=== PATIENT | male | born 1945 | race Caucasian/White ===

== ENCOUNTER → 2016-10-17 | Outpatient (CLI) | payer BC, MEDICARE ==
[~2016-10-17] MED LIST: COCO120O MC; GLUC1TAB44 PO; LUTE20CA2 PO; OMEG1CAP6 PO; OMEP40CA5 PO; TUMERIC CURCUMIN PO
--- NOTE | 2016-10-17 15:28 | CARD ---
APPROVED REPORT INDICATION Chest Pain PROCEDURE The patient underwent an Exercise Stress Test using the Brett Protocol. Blood pressure, heart rate, a nd EKG were monitored. An Echocardiogram was performed by heat transfer technician in four stages in quad fashion. At peak stress four se lected images were obtained and placed side by side with resting images for comparison. STRESS ECHO FINDINGS The resting Echocardiogram showed normal left ventricular contractility with an estimated Ejection Fr action of about 60 %. The stress Echocardiogram showed wall motion abnormality in the anterior,inferior, lateral and inferi orseptal dyer. Test Type: Exercise Stress Nurse/Tech: Anabela Puckett R.N. Test Indications: chest pain, describes cramping pain Cardiac History and Allergies: none Medications: none Resting ECG: sr Resting Heart Rate: 64 bpm Resting Blood Pressure: 136/79mmHg Pretest Chest Pain: No chest pain Nurse/Tech Notes lungs cta, heart tones regular Consent: The procedure was explained to the patient in lay terms. Informed consent was witnessed. Marvin eout was entered into [employer]. History and Stress Test performed by Anabela Puckett R.N. Stress Symptoms DyspneaNo chest pain or symptoms. POST EXERCISE Reason for Termination: Reached target heart rate Target HR: Yes Max HR: 128 bpm 87% of Maximum Predicted HR: 147 bpm Exercise duration: 4:49 min:sec, 2 Stage Exercise capacity: 7.0METs Max Blood Pressure: 149/70mmHg Blood Pressure response to exercise: Normal blood pressure response during stress. Chest Pain: No. Arrhythmia: Yes. pvcs at end of exercise portion INTERPRETATION Stress EKG Conclusion: The resting EKG showed a sinus rhythm with minimal nonspecific ST-T wave farley es. The stress EKG showed significant ST depression in the inferior and lateral leads. EKG changes with exertion that are consistent with exercise-induced ischemia. <Conclusion> Good exercise tolerance with the patient walking for 4 minutes and 49 seconds on a Brett protocol. No chest pain reported with exertion. EKG changes with exertion that are consistent with ischemia. Normal left ventricular systolic function at rest. Abnormal LV function response to exertion with wall motion abnormalities in the inferior and lateral dyer. Abnormal treadmill stress echocardiogram with both EKG changes and LV wall motion abnormalities consi stent with stress induced ischemia.
== END | disposition home or self-care (01) ==
LOC: ECHO 12:32
PROVIDERS: ATTEND Internal Medicine Cardiovascular Disease
DX: R07.89 Other chest pain (principal)
CPT/HCPCS: 93017; 93350

== ENCOUNTER 2016-10-18 14:04 | Inpatient (IN) | payer MEDICARE, BC ==
[~2016-10-18] VITALS: Ht 182.9 cm; Wt 86.8 kg
[2016-10-18] MEDS ORDERED: NITROGLYCERIN SUBLINGUAL 0.4 MG BOTTLE OF 25. SL PRN ×3 (14:30→17:45)
[2016-10-18] MEDS ORDERED: FENTANYL PF 100 MCG/2 ML VIAL. IV PRN (14:30)
[2016-10-18 14:42] LABS: BASO # 0.1 x10^3/uL (0.0-0.2); BASO % 1 % (0-3); EOS % 2 % (0-3); LYMPH # 2.2 x10^3/uL (1.0-4.8); LYMPH % 20 % (24-48); MEAN CORPUSCULAR HEMOGLOBIN 31 pg (25-35); MEAN CORPUSCULAR HGB CONC 34 g/dL (31-37); MEAN CORPUSCULAR VOLUME 90 fL (79-100); MONO % 7 % (0-9); NEUT % 71 % (31-73); PLATELET COUNT 365 x10^3/uL (140-400); RED CELL DISTRIBUTION WIDTH 13.5 % (11.5-14.5); WHITE BLOOD COUNT 11.1 x10^3/uL (4.0-11.0)
[2016-10-18 14:51] LABS: INR 1.1 (0.8-1.1); PROTHROMBIN TIME PATIENT 13.2 SEC (11.7-14.0)
[2016-10-18 14:54] LABS: CALCIUM 8.9 mg/dL (8.5-10.1); CREATININE 0.9 mg/dL (0.7-1.3); GFR 82.7; MAGNESIUM 1.8 mg/dL (1.8-2.4); POTASSIUM 4.3 mmol/L (3.5-5.1)
--- NOTE | 2016-10-18 15:07 | RAD ---
Examination: Frontal view of the of chest History: History of chest pain Comparison: None available Findings: The cardiomediastinal silhouette grossly appears unremarkable. There is no acute infiltrate or visualized pneumothorax identified. Impression: No acute cardiopulmonary findings.
--- NOTE | 2016-10-18 15:19 | EKG ---
[facility] [address] [place] [address] Test Date: 2016-10-18 Test Time: 14:13:05 Pat Name: JG ALONSO Department: Room: Gender: M Fine Arts Teacher: : 1945 Requested By: Corona RICE Order Number: [id number] Reading MD: Sunil Nix Measurements Intervals [place] Rate: 67 P: 39 DE: 166 QRS: 34 QRSD: 110 T: 91 QT: 438 QTc: 466 Interpretive Statements SINUS RHYTHM LEFT ATRIAL ABNORMALITY LVH WITH REPOLARIZATION ABNORMALITY RVH WITH REPOLARIZATION ABNORMALITY QRS(T) CONTOUR ABNORMALITY CONSIDER ANTEROSEPTAL MYOCARDIAL DAMAGE RI6.01 Unconfirmed report No previous ECG available for comparison Electronically Signed On 10-20-2016 14:04:56 GIS SCIENTIST by Sunil Nix
[2016-10-18] MEDS ORDERED: ONDANSETRON PF 4 MG/2 ML VIAL. IV PRN ×2 (16:15→17:32)
[2016-10-18] MEDS ORDERED: ENOXAPARIN ** NOTE DOSE ** SYRINGE SQ ONE (16:15)
[2016-10-18] MEDS ORDERED: ASPIRIN 325 MG TABLET PO ONE (16:15)
[2016-10-18] MEDS ORDERED: ACETAMINOPHEN 325 MG TABLET. PO PRN (16:15)
[2016-10-18] MEDS ORDERED: MORPHINE SULFATE 4 MG/ML DISP.SYRIN. IV PRN ×2 (16:15→17:45)
--- NOTE | 2016-10-18 16:16 | PHYS DOC ---
Past Medical History Past Medical History: Other Additional Past Medical Histor: chronic back pain Past Surgical History: Other Additional Past Surgical Histo: hernia surgery Alcohol Use: None Drug Use: None Adult General Chief Complaint Chief Complaint: CHEST PAIN HPI HPI Patient is a 71 year old male who presents for intermittent chest pains at rest that have occurred in mid chest and last minutes at a time. Most recent episode at 1100 today. States these episodes are occurring more frequently recently. He states he had a stress test on Thursday and had abnormal results. He called Dr. Panda, on-call professor of psychiatry, who recommended coming to the emergency department for further evaluation. He is currently without symptoms. He denies cough, dyspnea, fever or chills, nausea or vomiting, abdominal pain, leg pain or swelling, orthopnea. Review of Systems Review of Systems Constitutional: Denies fever or chills [] Eyes: Denies change in visual acuity, redness, or eye pain [] HENT: Denies nasal congestion or sore throat [] Respiratory: Denies cough or shortness of breath [] Cardiovascular: No additional information not addressed in HPI [] GI: Denies abdominal pain, nausea, vomiting, bloody stools or diarrhea [] : Denies dysuria or hematuria [] Musculoskeletal: Denies back pain or joint pain [] Integument: Denies rash or skin lesions [] Neurologic: Denies headache, focal weakness or sensory changes [] Endocrine: Denies polyuria or polydipsia [] Current Medications Current Medications Current Medications Medications (Trade) Dose Ordered Sig/[facility] Start Time Stop Time Status Last Admin Dose Admin Fentanyl Citrate (Fentanyl 2ml Vial) 50 mcg PRN Q15MIN PRN 10/18/16 14:30 10/18/16 17:33 DC Nitroglycerin (Nitrostat) 0.4 mg PRN Q5MIN PRN 10/18/16 14:30 10/18/16 17:47 DC Allergies Allergies Allergies Coded Allergies Type Severity Reaction Last Updated Verified No Known Drug Allergies 10/18/16 No Physical Exam Physical Exam Constitutional: Well developed, well nourished, no acute distress, non-toxic appearance. [] HENT: Normocephalic, atraumatic, bilateral external ears normal, oropharynx moist, no oral exudates, nose normal. [] Eyes: PERRLA, EOMI. [] Neck: Normal range of motion, supple. [] Cardiovascular:Heart rate regular rhythm [] Lungs & Thorax: Bilateral breath sounds clear to auscultation. No chest wall tenderness [] Abdomen: Bowel sounds normal, soft, no tenderness, no pulsatile masses. [] Skin: Warm, dry, no erythema, no rash. [] Back: Normal range of motion. [] Extremities: No tenderness, ROM intact, no edema. [] Neurologic: Alert and oriented X 3, normal motor function, normal sensory function, no focal deficits noted. [] Psychologic: Affect normal, judgement normal, mood normal. [] Current Patient Data Vital Signs Vital Signs Date Time Temp Pulse Resp B/P Pulse Ox O2 Delivery O2 Flow Rate FiO2 10/18/16 15:30 66 17 141/73 95 Room Air 10/18/16 14:13 98.2 98.2 Lab Values Laboratory Tests Test 10/18/16 14:26 White Blood Count 11.1x10^3/uL (4.0-11.0) H Red Blood Count 4.90x10^6/uL (4.30-5.70) Hemoglobin 15.0g/dL (13.0-17.5) Hematocrit 44.0% (39.0-53.0) Mean Corpuscular Volume 90fL (79-100) Mean Corpuscular Hemoglobin 31pg (25-35) Mean Corpuscular Hemoglobin Concent 34g/dL (31-37) Red Cell Distribution Width 13.5% (11.5-14.5) Platelet Count 365x10^3/uL (140-400) Neutrophils (%) (Auto) 71% (31-73) Lymphocytes (%) (Auto) 20% (24-48) L Monocytes (%) (Auto) 7% (0-9) Eosinophils (%) (Auto) 2% (0-3) Basophils (%) (Auto) 1% (0-3) Neutrophils # (Auto) 7.9x10^3uL (1.8-7.7) H Lymphocytes # (Auto) 2.2x10^3/uL (1.0-4.8) Monocytes # (Auto) 0.7x10^3/uL (0.0-1.1) Eosinophils # (Auto) 0.2x10^3/uL (0.0-0.7) Basophils # (Auto) 0.1x10^3/uL (0.0-0.2) Prothrombin Time 13.2SEC (11.7-14.0) Prothrombin Time INR 1.1 (0.8-1.1) Sodium Level 142mmol/L (136-145) Potassium Level 4.3mmol/L (3.5-5.1) Chloride Level 107mmol/L (98-107) Carbon Dioxide Level 26mmol/L (21-32) Anion Gap 9 (6-14) Blood Urea Nitrogen 11mg/dL (8-26) Creatinine 0.9mg/dL (0.7-1.3) Estimated GFR (Cockcroft-Gault) 82.7 Glucose Level 131mg/dL (70-99) H Calcium Level 8.9mg/dL (8.5-10.1) Magnesium Level 1.8mg/dL (1.8-2.4) Troponin I Quantitative 0.133ng/mL (0.000-0.055) XL-Nrj-H-Type Natriuretic Peptide 327pg/mL (0-124) H Laboratory Tests 10/18/16 14:26 Laboratory Tests 10/18/16 14:26 EKG EKG EKG as interpreted by me with normal sinus rhythm, rate 67, T-wave inversions in anterior leads, no ST elevations or depressions, P-R 166, QTC 466, no ectopy Radiology/Procedures Radiology/Procedures Chest xray as interpreted by me with no acute cardiopulmonary disease process Course & Med Decision Making Course & Med Decision Making Pertinent Labs and Imaging studies reviewed. (See chart for details) Laboratory evaluation reveals an elevated troponin; workup is otherwise unremarkable. He remains without symptoms during his stay. ASA and Lovenox ordered. Discussed case with Dr Panda, cardiology, who agrees with plan. Discussed case with Dr. Solis, who will admit. Dragon Disclaimer Dragon Disclaimer This electronic medical record was generated, in whole or in part, using a voice recognition dictation system. Departure Departure Impression: Primary Impression: NSTEMI (non-ST elevated myocardial infarction) Disposition: ADMITTED INPATIENT Condition: STABLE Referrals: MARLENE MONTIEL MD (PCP) Corona RICE MD Oct 18, 2016 16:16
--- NOTE | 2016-10-18 16:41 | ACF ---
Admission Forms Criteria MYOCARDIAL INFARCTION Clinical Indications for Admission to Inpatient Care (Place 'X' for any and all applicable criteria): Admission is indicated for ANY ONE of the following (1)(2)(3)(4): [X]I. Acute OR [ ]II. Contraindications and/or Inappropriate clinical situations for Observational Care in patients with Myocardial Infarction, when ANY ONE of the following is required: [ ]a) Patient with High risk of cardiac embolism (e.g, patients with previous cardiac embolism, LVEF < 40%, age >75 and patients with prosthetic valve) 18 [ ]b) Patient with Moderate risk including DM patient, CAD and patient aged 65-75 18 [ ]c) Patient with any change in cardiac biomarker especially troponin should be managed as high risk in an inpatient setting 19 [ ]d) Physician judgement irrespective of ECG and other diagnostic findings 20 [ ]III.General contraindications and/or Inappropriate clinical situations for Observational Care in patients with Myocardial Infarction, when ANY ONE of the following is required: [ ]a) Prediction of prolongation of LOS based on ANY ONE of the following may be considered as a contraindication for observational care 2, 3, 4, 5, 6, 7, 8, 9, 10, 11 [ ]i) Age > 65 yrs. [ ]ii) Patient arriving by ambulance [ ]iii) Patient with high acuity [ ]iv) Patient requiring vital sign monitoring [ ]v) Patient on IV medication [ ]b) Systolic blood pressures 180mmHg 3,12 [ ]c) Patient with altered mental status including delirium and other alteration of consciousness, (3) [ ]d) Patient whose discharge disposition will be to a usp home or rehabilitation home should not be managed in Emergency Department Observation Unit. CMS rule requires 3 days hospital stay before such placement. 3,13 [ ]e) Patient with failure to thrive due to broad array of etiologies 3 ,16,17 [ ]f) Inability to ambulate 3,14 Extended stay beyond goal length of stay may be needed for (1)(18)(20)(24)(25): [ ]a) Hemodynamic instability, persisting symptoms after intensive medical management, or recurring severe, prolonged symptoms [ ]b) Intravascular procedural complications such as acute vessel closure, stent thrombosis, stent malposition, or vessel dissection (26)(27)(28) [ ]c) Extravascular procedural complications such as retroperitoneal hematoma , pericardial effusion, or cardiac tamponade [ ]d) Entry site complications causing bleeding, hematoma or distal ischemia and requiring ongoing monitoring, surgical repair or surgical thrombectomy(29) [ ]e) Dangerous arrhythmia [ ]f) Complicated percutaneous coronary intervention (e.g., unsuccessful percutaneous coronary intervention or percutaneous coronary intervention of non- [place] vessel) [ ]g) Urgent or emergent surgery for complications of OR (e.g., ventricular rupture, valvular insufficiency) [ ]h) Surgical revascularization via coronary artery bypass graft [ ]i) Heart failure (e.g., pulmonary edema) [ ]j) Unstable pulmonary comorbidities, including COPD or pneumonia (31) [ ]k) Acute renal failure The original [employer] content created by [employer] has been revised. The portions of the content which have been revised are identified through the use of italic text or in bold, and [facility] has neither reviewed nor approved the modified material. All other unmodified content is copyright [facility] Please see references footnoted in the original [facility] edition 2016 Admission Criteria Met?: Yes ARVIND CORBETT Oct 18, 2016 16:41
[2016-10-18] MEDS ORDERED: NEOMY/BACITR/POLYMYXIN OINT PACKET. TP ONE ×2 (16:50→17:15)
--- NOTE | 2016-10-18 17:38 | PDOC1 ---
History and Physical Date of Admission Date of Admission DATE: 10/18/16 TIME: 17:34 Identification/Chief Complaint Chief Complaint chest pains Source Source: Caregiver, Chart review, Patient History of Present Illness History of Present Illness 71 y./o male previously healthy has been having CP, had MPI as OP c/o Dr. Kidd,was abN, Was advised ff up for thursday but has been having bothersome resting CP at home, central, heavy no diaphoresis but some tingling both hands, NOn smoker, non drinker, no personal or fam hx of premature CAD, does not atke any meds at hoem, EKG ok but trop elevated first set, Advised lovenox by cards, admitted under hospitalist. CP 8/10, lasts anywhere between 5 to 20 mins Past Medical History Cardiovascular: No pertinent hx Pulmonary: No pertinent hx GI: No pertinent hx Heme/Onc: No pertinent hx Hepatobiliary: No pertinent hx Psych: No pertinent hx Rheumatologic: No pertinent hx Infectious disease: No pertinent hx ENT: No pertinent hx Renal/: No pertinent hx Endocrine: No pertinent hx Dermatology: No pertinent hx Past Surgical History Past Surgical History: No pertinent history Family History Family History: Heart Disease, High Cholestrol, Hypertension Social History Smoke: No ALCOHOL: none Drugs: None Current Problem List Problem List Problems Medical Problems: (1) Chest pain Status: Acute (2) NSTEMI (non-ST elevated myocardial infarction) Status: Acute Problems: Current Medications Current Medications Current Medications Nitroglycerin (Nitrostat) 0.4 mg PRN Q5MIN PRN SL CP RATING > 1/10; Start at 14:30; Stop 10/19/16 at 14:29 Fentanyl Citrate (Fentanyl 2ml Vial) 50 mcg PRN Q15MIN PRN IV PAIN GREATER THAN 3/10; Start 10/18/16 at 14:30; Stop 10/18/16 at 17:33; Status DC Aspirin (Jessy Aspirin) 325 mg 1X ONCE PO Last administered on 10/18/16 16:47 ; Start 10/18/16 at 16:15; Stop 10/18/16 at 16:32; Status DC Enoxaparin Sodium (Lovenox 100mg Syringe) 90 mg 1X ONCE SQ Last administered on 10/18/16 16:47; Start 10/18/16 at 16:15; Stop 10/18/16 at 16:32; Status DC Ondansetron HCl (Zofran) 4 mg PRN Q8HRS PRN IV NAUSEA/VOMITING; Start 10/18/16 at 16:15; Stop 10/18/16 at 17:33; Status DC Morphine Sulfate 4 mg PRN Q2HR PRN IV PAIN; Start 10/18/16 at 16:15; Stop at 17:33; Status DC Acetaminophen (Tylenol) 650 mg PRN Q4HRS PRN PO FEVER; Start 10/18/16 at 16:15; Stop 10/19/16 at 16:14 Nitroglycerin (Nitrostat) 0.4 mg PRN Q5MIN PRN SL CHEST PAIN; Start 10/18/16 at 16:15; Stop 10/19/16 at 16:14; Status UNV Neomycin/ Polymyxin/ Bacitracin (Triple Antibiotic Ointment) 1 pkt STK-MED ONCE TP ; Start 10/18/16 at 16:50; Stop 10/18/16 at 16:51; Status DC Neomycin/ Polymyxin/ Bacitracin (Triple Antibiotic Ointment) 1 pkt 1X ONCE TP Last administered on 10/18/16t 16:57; Start 10/18/16 at 17:15; Stop 10/18/16 at 17: 16; Status DC Morphine Sulfate 2 mg PRN Q2HR PRN IV PAIN; Start 10/18/16 at 17:45; Status UNV Ondansetron HCl (Zofran) 4 mg PRN Q6HRS PRN IV NAUSEA/VOMITING; Start 10/18/16 at 17:32; Status UNV Nitroglycerin (Nitrostat) 0.4 mg PRN Q5MIN PRN SL CHEST PAIN; Start 10/18/16 at 17:45; Status UNV Diphenhydramine HCl (Benadryl) 25 mg PRN QHS PRN PO INSOMNIA; Start 10/18/16 at 17:45; Status UNV Allergies Allergies: Coded Allergies: No Known Drug Allergies (Unverified , 10/18/16) ROS General: No: Appetite, Chills, Fatigue, Malaise, Night Sweats, Other PSYCHOLOGICAL ROS: No: Anxiety, Behavioral Disorder, Concentration difficultie , Decreased libido, Depression, Disorientation, Hallucinations, Hostility, Irritablity, Memory difficulties, Mood Swings, Obsessive thoughts, Other, Physical abuse, Sexual abuse, Sleep disturbances, Suicidal ideation Eyes: No Blurry vision, No Decreased vision, No Double vision, No Dry eyes, No Excessive tearing, No Eye Pain, No Itchy Eyes, No Loss of vision, No Other, No Photophobia, No Scotomata, No Uses contacts, No Uses glasses HEENT: No: Epistaxis, Heacaches, Hearing change, Nasal congestion, Nasal discharge, Oral lesions, Other, Sinus pain, Sneezing, Snoring, Sore Throat, Tinnitus, Vertigo, Visual Changes, Vocal changes ALLERGY AND IMMUNOLOGY: No: Hives, Insect Bite Sensitivity, Itchy/Watery Eyes, Nasal Congestion, Other, Post Nasal Drip, Seasonal Allergies Hematological and Lymphatic: No: Bleeding Problems, Blood Clots, Blood Transfusions, Brusing, Night Sweats, Other, Pallor, Swollen Lymph Nodes ENDOCRINE: No: Breast Changes, Galactorrhea, Hair Pattern Changes, Hot Flashes , Malaise/lethargy, Mood Swings, Other, Palpitations, Polydipsia/polyuria, Skin Changes, Temperature Intolerance, Unexpected Weight Changes Breast: No New/Changing Breast Lumps, No Nipple changes, No Nipple discharge, No Other Respiratory: No: Cough, Hemoptysis, Orthopnea, Other, Pleuritic Pain, SOB with excertion, Shortness of breath, Sputum Changes, Stridor, Tachypnea, Wheezing Cardiovascular: yes Chest Pain Gastrointestinal: No Abdominal Pain, No Constipation, No Diarrhea, No Hematochezia, No Melena, No Nausea, No Other, No Vomiting Genitourinary: No , No , No , No , No , No , No , No Discharge, No Dysuria, No Flank Pain, No Frequency, No Hematuria, No Incontinence, No Other, No Pain, No Retention, No Urgency Musculoskeletal: No Gait Disturbance, No Joint Pain, No Joint Stiffness, No Joint Swelling, No Muscle Pain, No Muscular Weakness, No Other, No Pain In:, No Swelling In: Neurological: No Behavorial Changes, No Bowel/Bladder ControlChng, No Confusion , No Dizziness, No Gait Disturbance, No Headaches, No Impaired Coord/balance, No Memory Loss, No Numbness/Tingling, No Other, No Seizures, No Speech Problems , No Tremors, No Visual Changes, No Weakness Skin: No Acne, No Dry Skin, No Eczema, No Hair Changes, No Lumps, No Mole Changes, No Mottling, No Nail Changes, No Other, No Pruritus, No Rash, No Skin Lesion Changes Physical Exam General: Alert, Oriented X3, Cooperative, No acute distress HEENT: PERRLA, EOMI Lungs: Clear to auscultation, Normal air movement Heart: S1S2, RRR, no thrills, no rubs, no gallops Cardiovascular: S1, S2 Breasts: Normal Abdomen: Normal bowel sounds, Soft, No tenderness, No hepatosplenomegaly, No masses Male Genitals Exam: normal genitalia, normal prostate Rectal Exam: not examined PELVIC: Nml ext genitalia Extremities: No clubbing, No cyanosis, No edema, Normal pulses, No tenderness/ swelling Skin: No rashes, No breakdown, No significant lesion Neuro: Normal gait, Normal speech, Strength at 5/5 X4 ext, Normal tone, Sensation intact, Cranial nerves 3-12 NL, Reflexes 2+ Psych/Mental Status: Mental status NL, Mood NL Vitals Vitals Vital Signs Date Time Temp Pulse Resp B/P Pulse Ox O2 Delivery O2 Flow Rate FiO2 10/18/16 15:30 66 17 141/73 95 Room Air 10/18/16 14:13 98.2 98.2 Labs Labs Laboratory Tests Test 10/18/16 14:26 White Blood Count 11.1x10^3/uL (4.0-11.0) Red Blood Count 4.90x10^6/uL (4.30-5.70) Hemoglobin 15.0g/dL (13.0-17.5) Hematocrit 44.0% (39.0-53.0) Mean Corpuscular Volume 90fL (79-100) Mean Corpuscular Hemoglobin 31pg (25-35) Mean Corpuscular Hemoglobin Concent 34g/dL (31-37) Red Cell Distribution Width 13.5% (11.5-14.5) Platelet Count 365x10^3/uL (140-400) Neutrophils (%) (Auto) 71% (31-73) Lymphocytes (%) (Auto) 20% (24-48) Monocytes (%) (Auto) 7% (0-9) Eosinophils (%) (Auto) 2% (0-3) Basophils (%) (Auto) 1% (0-3) Neutrophils # (Auto) 7.9x10^3uL (1.8-7.7) Lymphocytes # (Auto) 2.2x10^3/uL (1.0-4.8) Monocytes # (Auto) 0.7x10^3/uL (0.0-1.1) Eosinophils # (Auto) 0.2x10^3/uL (0.0-0.7) Basophils # (Auto) 0.1x10^3/uL (0.0-0.2) Prothrombin Time 13.2SEC (11.7-14.0) Prothromb Time International Ratio 1.1 (0.8-1.1) Sodium Level 142mmol/L (136-145) Potassium Level 4.3mmol/L (3.5-5.1) Chloride Level 107mmol/L (98-107) Carbon Dioxide Level 26mmol/L (21-32) Anion Gap 9 (6-14) Blood Urea Nitrogen 11mg/dL (8-26) Creatinine 0.9mg/dL (0.7-1.3) Estimated GFR (Cockcroft-Gault) 82.7 Glucose Level 131mg/dL (70-99) Calcium Level 8.9mg/dL (8.5-10.1) Magnesium Level 1.8mg/dL (1.8-2.4) Troponin I Quantitative 0.133ng/mL (0.000-0.055) QY-Ych-X-Type Natriuretic Peptide 327pg/mL (0-124) Laboratory Tests Test 10/18/16 14:26 White Blood Count 11.1x10^3/uL (4.0-11.0) Red Blood Count 4.90x10^6/uL (4.30-5.70) Hemoglobin 15.0g/dL (13.0-17.5) Hematocrit 44.0% (39.0-53.0) Mean Corpuscular Volume 90fL (79-100) Mean Corpuscular Hemoglobin 31pg (25-35) Mean Corpuscular Hemoglobin Concent 34g/dL (31-37) Red Cell Distribution Width 13.5% (11.5-14.5) Platelet Count 365x10^3/uL (140-400) Neutrophils (%) (Auto) 71% (31-73) Lymphocytes (%) (Auto) 20% (24-48) Monocytes (%) (Auto) 7% (0-9) Eosinophils (%) (Auto) 2% (0-3) Basophils (%) (Auto) 1% (0-3) Neutrophils # (Auto) 7.9x10^3uL (1.8-7.7) Lymphocytes # (Auto) 2.2x10^3/uL (1.0-4.8) Monocytes # (Auto) 0.7x10^3/uL (0.0-1.1) Eosinophils # (Auto) 0.2x10^3/uL (0.0-0.7) Basophils # (Auto) 0.1x10^3/uL (0.0-0.2) Prothrombin Time 13.2SEC (11.7-14.0) Prothromb Time International Ratio 1.1 (0.8-1.1) Sodium Level 142mmol/L (136-145) Potassium Level 4.3mmol/L (3.5-5.1) Chloride Level 107mmol/L (98-107) Carbon Dioxide Level 26mmol/L (21-32) Anion Gap 9 (6-14) Blood Urea Nitrogen 11mg/dL (8-26) Creatinine 0.9mg/dL (0.7-1.3) Estimated GFR (Cockcroft-Gault) 82.7 Glucose Level 131mg/dL (70-99) Calcium Level 8.9mg/dL (8.5-10.1) Magnesium Level 1.8mg/dL (1.8-2.4) Troponin I Quantitative 0.133ng/mL (0.000-0.055) MX-Ano-H-Type Natriuretic Peptide 327pg/mL (0-124) VTE Prophylaxis Ordered VTE Prophylaxis Devices: Yes VTE Pharmacological Prophylaxi: Yes Assessment/Plan Assessment/Plan 1. Unstable ANgina, NSTEMI 2. AbN MPI PLAn: Lovenox weight based BID PADMAJA Stool softener Admit tele Hook tele 2 MN CArdiac cath likely Thursday MAy Check lipids if not done as OP Consult cards Dw pt and JOANA MATHUR Oct 18, 2016 17:38
[2016-10-18] MEDS ORDERED: DIPHENHYDRAMINE HCL 25 MG CAPSULE PO PRN (17:45)
[2016-10-18] MEDS ORDERED: GLUC1TAB44 PO (18:31)
[2016-10-18] MEDS ORDERED: TUMERIC CURCUMIN PO (18:31)
[2016-10-18] MEDS ORDERED: LUTE20CA2 PO (18:31)
[2016-10-18] MEDS ORDERED: COCO120O MC (18:31)
[2016-10-18] MEDS ORDERED: OMEG1CAP6 PO (18:31)
[2016-10-18] MEDS ORDERED: OMEP40CA5 PO (18:31)
[2016-10-18] MEDS: DOCUSATE SODIUM 100 MG CAPSULE PO SCH (18:35)
[2016-10-18 18:43] VITALS: BP 170/108
[2016-10-18 19:40] VITALS: BP 137/56
[2016-10-18 23:35] VITALS: BP 119/53
[2016-10-19 02:46] VITALS: BP 136/69
[2016-10-19 03:45] LABS: CHOLESTEROL/HDL RATIO 4.3
[2016-10-19 07:43] VITALS: BP 134/70
--- NOTE | 2016-10-19 08:10 | PDOC2 ---
CONSULT Date of Consult Date of Consult DATE: 10/19/16 TIME: 08:04 Reason for Consult Reason for Consult: chest pain Referring Physician Referring Physician: Dr. Solis Identification/Chief Complaint Chief Complaint Chest pain History of Present Illness Reason for Visit: The patient is a pleasant 71-year-old male who has been in the process of being worked up as an outpatient for episodes of chest discomfort. He had an abnormal stress echocardiogram on Thursday. The patient then had recurrent episodes of chest pain last night which were increased from baseline. She went to the emergency room and was found to have no acute ischemic EKG changes. Troponin was slightly elevated 0.13. The patient has been anticoagulated and continued on home medications. He is pain-free this morning. He reports feeling better. He denies any history of coronary artery disease, congestive heart failure or cardiac arrhythmias. Past Medical History Cardiovascular: No pertinent hx, HTN Pulmonary: No pertinent hx GI: No pertinent hx Heme/Onc: No pertinent hx Hepatobiliary: No pertinent hx Psych: No pertinent hx Musculoskeletal: low back pain Rheumatologic: No pertinent hx Infectious disease: No pertinent hx ENT: No pertinent hx Renal/: No pertinent hx Endocrine: No pertinent hx Dermatology: No pertinent hx Past Surgical History Past Surgical History: Hernia Repair, No pertinent history Family History Family History: Heart Disease, High Cholestrol, Hypertension Social History No ALCOHOL: none Drugs: None Current Problem List Problem List Problems Medical Problems: (1) Chest pain Status: Acute (2) NSTEMI (non-ST elevated myocardial infarction) Status: Acute Current Medications Current Medications Current Medications Nitroglycerin (Nitrostat) 0.4 mg PRN Q5MIN PRN SL CP RATING > 1/10; Start at 14:30; Stop 10/18/16 at 17:47; Status DC Fentanyl Citrate (Fentanyl 2ml Vial) 50 mcg PRN Q15MIN PRN IV PAIN GREATER THAN 3/10; Start 10/18/16 at 14:30; Stop 10/18/16 at 17:33; Status DC Aspirin (Jessy Aspirin) 325 mg 1X ONCE PO Last administered on 10/18/16 16:47 ; Start 10/18/16 at 16:15; Stop 10/18/16 at 16:32; Status DC Enoxaparin Sodium (Lovenox 100mg Syringe) 90 mg 1X ONCE SQ Last administered on 10/18/16 16:47; Start 10/18/16 at 16:15; Stop 10/18/16 at 16:32; Status DC Ondansetron HCl (Zofran) 4 mg PRN Q8HRS PRN IV NAUSEA/VOMITING; Start 10/18/16 at 16:15; Stop 10/18/16 at 17:33; Status DC Morphine Sulfate 4 mg PRN Q2HR PRN IV PAIN; Start 10/18/16 at 16:15; Stop at 17:33; Status DC Acetaminophen (Tylenol) 650 mg PRN Q4HRS PRN PO FEVER; Start 10/18/16 at 16:15; Stop 10/19/16 at 16:14 Nitroglycerin (Nitrostat) 0.4 mg PRN Q5MIN PRN SL CHEST PAIN; Start 10/18/16 at 16:15; Stop 10/19/16 at 16:14; Status UNV Neomycin/ Polymyxin/ Bacitracin (Triple Antibiotic Ointment) 1 pkt STK-MED ONCE TP ; Start 10/18/16 at 16:50; Stop 10/18/16 at 16:51; Status DC Neomycin/ Polymyxin/ Bacitracin (Triple Antibiotic Ointment) 1 pkt 1X ONCE TP Last administered on 10/18/16 16:57; Start 10/18/16 at 17:15; Stop 10/18/16 at 17: 16; Status DC Morphine Sulfate 2 mg PRN Q2HR PRN IV PAIN Last administered on 10/18/16 18:21 ; Start 10/18/16 at 17:45 Ondansetron HCl (Zofran) 4 mg PRN Q6HRS PRN IV NAUSEA/VOMITING; Start 10/18/16 at 17:32 Nitroglycerin (Nitrostat) 0.4 mg PRN Q5MIN PRN SL CHEST PAIN; Start 10/18/16 at 17:45 Diphenhydramine HCl (Benadryl) 25 mg PRN QHS PRN PO INSOMNIA; Start 10/18/16 at 17:45 Enoxaparin Sodium (Lovenox 100mg Syringe) 90 mg Q12HR SQ ; Start 10/19/16 at 09: 00 Docusate Sodium (Colace) 100 mg DAILY PO Last administered on 10/18/16 18:35; Start 10/18/16 at 18:00 Pneumococcal Polyvalent Vaccine (Do NOT chart on this placeholder) 1 each 1X ONCE MC ; Start 10/19/16 at 09:00; Stop 10/19/16 at 09:01; Status UNV Pneumococcal Polyvalent Vaccine (Pneumovax 23) 0.5 ml ONCE ONCE VAX IM ; Start 10/19/16 at 09:00; Stop 10/19/16 at 09:01 Active Scripts Active Reported [Tumeric Curcumin] 500 Mg PO BID Coconut Oil 120 Ml Oil 120 Ml MC Iamewkm-Zpcnt-Zkz Complex Cplt (Gluc/Danis-Msm#1/Vit C/Jorge/Bor) 1 Each Tablet 1 Each PO BID Lutein 20 Mg Capsule 20 Mg PO DAILY Fish Oil 1,000 Mg Capsule ([place]-3 Fatty Acids/Fish Oil) 1 Each Capsule 2 Each PO Omeprazole 40 Mg Capsule.dr 40 Mg PO DAILY Allergies Allergies: Coded Allergies: No Known Drug Allergies (Unverified , 10/18/16) ROS Cardiovascular: yes Chest Pain Physical Exam General: No acute distress HEENT: Atraumatic Lungs: Clear to auscultation Heart: Regular rate Abdomen: Normal bowel sounds Extremities: Normal pulses Vitals VITALS Vital Signs Date Time Temp Pulse Resp B/P Pulse Ox O2 Delivery O2 Flow Rate FiO2 10/19/16 07:43 98.3 61 18 134/70 95 Room Air 98.3 10/19/16 02:46 2.0 Labs Labs Laboratory Tests Test 10/18/16 14:26 10/18/16 21:10 10/19/16 03:05 White Blood Count 11.1x10^3/uL (4.0-11.0) Red Blood Count 4.90x10^6/uL (4.30-5.70) Hemoglobin 15.0g/dL (13.0-17.5) Hematocrit 44.0% (39.0-53.0) Mean Corpuscular Volume 90fL (79-100) Mean Corpuscular Hemoglobin 31pg (25-35) Mean Corpuscular Hemoglobin Concent 34g/dL (31-37) Red Cell Distribution Width 13.5% (11.5-14.5) Platelet Count 365x10^3/uL (140-400) Neutrophils (%) (Auto) 71% (31-73) Lymphocytes (%) (Auto) 20% (24-48) Monocytes (%) (Auto) 7% (0-9) Eosinophils (%) (Auto) 2% (0-3) Basophils (%) (Auto) 1% (0-3) Neutrophils # (Auto) 7.9x10^3uL (1.8-7.7) Lymphocytes # (Auto) 2.2x10^3/uL (1.0-4.8) Monocytes # (Auto) 0.7x10^3/uL (0.0-1.1) Eosinophils # (Auto) 0.2x10^3/uL (0.0-0.7) Basophils # (Auto) 0.1x10^3/uL (0.0-0.2) Prothrombin Time 13.2SEC (11.7-14.0) Prothromb Time International Ratio 1.1 (0.8-1.1) Sodium Level 142mmol/L (136-145) Potassium Level 4.3mmol/L (3.5-5.1) Chloride Level 107mmol/L (98-107) Carbon Dioxide Level 26mmol/L (21-32) Anion Gap 9 (6-14) Blood Urea Nitrogen 11mg/dL (8-26) Creatinine 0.9mg/dL (0.7-1.3) Estimated GFR (Cockcroft-Gault) 82.7 Glucose Level 131mg/dL (70-99) Calcium Level 8.9mg/dL (8.5-10.1) Magnesium Level 1.8mg/dL (1.8-2.4) Troponin I Quantitative 0.133ng/mL (0.000-0.055) 0.099ng/mL (0.000-0.055) 0.114ng/mL (0.000-0.055) DA-Jtq-Q-Type Natriuretic Peptide 327pg/mL (0-124) Triglycerides Level 134mg/dL (0-150) Cholesterol Level 156mg/dL (0-200) LDL Cholesterol, Calculated 93mg/dL (0-100) VLDL Cholesterol, Calculated 27mg/dL (0-40) HDL Cholesterol 36mg/dL (40-60) Cholesterol/HDL Ratio 4.3 Laboratory Tests Test 10/18/16 14:26 10/18/16 21:10 3/5/17 03:05 White Blood Count 11.1x10^3/uL (4.0-11.0) Red Blood Count 4.90x10^6/uL (4.30-5.70) Hemoglobin 15.0g/dL (13.0-17.5) Hematocrit 44.0% (39.0-53.0) Mean Corpuscular Volume 90fL (79-100) Mean Corpuscular Hemoglobin 31pg (25-35) Mean Corpuscular Hemoglobin Concent 34g/dL (31-37) Red Cell Distribution Width 13.5% (11.5-14.5) Platelet Count 365x10^3/uL (140-400) Neutrophils (%) (Auto) 71% (31-73) Lymphocytes (%) (Auto) 20% (24-48) Monocytes (%) (Auto) 7% (0-9) Eosinophils (%) (Auto) 2% (0-3) Basophils (%) (Auto) 1% (0-3) Neutrophils # (Auto) 7.9x10^3uL (1.8-7.7) Lymphocytes # (Auto) 2.2x10^3/uL (1.0-4.8) Monocytes # (Auto) 0.7x10^3/uL (0.0-1.1) Eosinophils # (Auto) 0.2x10^3/uL (0.0-0.7) Basophils # (Auto) 0.1x10^3/uL (0.0-0.2) Prothrombin Time 13.2SEC (11.7-14.0) Prothromb Time International Ratio 1.1 (0.8-1.1) Sodium Level 142mmol/L (136-145) Potassium Level 4.3mmol/L (3.5-5.1) Chloride Level 107mmol/L (98-107) Carbon Dioxide Level 26mmol/L (21-32) Anion Gap 9 (6-14) Blood Urea Nitrogen 11mg/dL (8-26) Creatinine 0.9mg/dL (0.7-1.3) Estimated GFR (Cockcroft-Gault) 82.7 Glucose Level 131mg/dL (70-99) Calcium Level 8.9mg/dL (8.5-10.1) Magnesium Level 1.8mg/dL (1.8-2.4) Troponin I Quantitative 0.133ng/mL (0.000-0.055) 0.099ng/mL (0.000-0.055) 0.114ng/mL (0.000-0.055) EE-Ppy-F-Type Natriuretic Peptide 327pg/mL (0-124) Triglycerides Level 134mg/dL (0-150) Cholesterol Level 156mg/dL (0-200) LDL Cholesterol, Calculated 93mg/dL (0-100) VLDL Cholesterol, Calculated 27mg/dL (0-40) HDL Cholesterol 36mg/dL (40-60) Cholesterol/HDL Ratio 4.3 Assessment/Plan Assessment/Plan 1. Chest pain. Abnormal stress echo on 10-17. Episode of chest pain overnight. Pain resolved. Minimal elevation of troponin at 0.13 and 0.19. We'll continue anticoagulation. Continue baseline medications. Catheterization tomorrow. Risks and benefits were discussed with the patient. He has agreed to proceed. 2. History of borderline hypertension. We'll continue to monitor. 3. Uncertain cholesterol level. Lipid panel is pending. Thank you for allowing us to participate the care of your pleasant patient. ANN MARIE ORELLANA MD Oct 19, 2016 08:10
[2016-10-19] MEDS ORDERED: HEPARIN for IV BOLUS 10,000 UNIT/10 ML VIAL. IV PRN (08:15)
[2016-10-19] MEDS ORDERED: HEPARIN 25,000UTS/500ML PREMIX 500 ML IV PRN (08:15)
[2016-10-19] MEDS ORDERED: PNEUMOC CONJ VACC 23-VALENT 0.5 ML VIAL. VAX IM ONE (09:00)
[2016-10-19] MEDS ORDERED: PNEUMOCOCCAL VAX SCREEN BY RX. MC ONE (09:00)
[2016-10-19] MEDS ORDERED: ENOXAPARIN ** NOTE DOSE ** SYRINGE SQ SCH (09:00)
--- NOTE | 2016-10-19 09:05 | EKG ---
[facility] [address] [place] [address] Test Date: 2016-10-19 Test Time: 08:58:17 Pat Name: JG ALONSO Department: Room: 206 1 Gender: M [employer] R[employer] Clerk: : 1945 Requested By: ANN MARIE NIX Order Number: [id number] Reading MD: Ann Marie Nix Measurements Intervals [place] Rate: 56 P: 31 MS: 178 QRS: 40 QRSD: 114 T: 97 QT: 476 QTc: 462 Interpretive Statements SINUS RHYTHM LVH WITH REPOLARIZATION ABNORMALITY QRS(T) CONTOUR ABNORMALITY CONSIDER INFERIOR MYOCARDIAL DAMAGE ABNORMAL ECG RI6.01 Unconfirmed report Electronically Signed On 10-20-2016 14:09:56 SPINE NURSE by Ann Marie Nix
[2016-10-19] MEDS: IV NORMAL SALINE 1000ML BAG 1,000 ML IV SCH (10:15)
[2016-10-19] MEDS: DOCUSATE SODIUM 100 MG CAPSULE PO SCH (10:22)
[2016-10-19 10:33] VITALS: BP 131/69
--- NOTE | 2016-10-19 12:07 | PDOC ---
PROGRESS NOTES Chief Complaint Chief Complaint - Acute Chest Pain - NSTEMI History of Present Illness History of Present Illness Patient was lying in the bed at the time of evaluation, was awake, alert, oriented, in no acte distress, denied any chest pain episode overnight, plan of care discussed with patient and RN. Vitals Vitals Vital Signs Date Time Temp Pulse Resp B/P Pulse Ox O2 Delivery O2 Flow Rate FiO2 10/19/16 10:33 98.1 55 19 131/69 97 Nasal Cannula 2.0 98.1 Physical Exam General: Alert, Oriented X3, Cooperative, No acute distress Heart: Regular rate Abdomen: Normal bowel sounds, Soft Extremities: Normal pulses Skin: No rashes, No breakdown, No significant lesion Labs LABS Laboratory Tests Test 10/18/16 14:26 10/18/16 21:10 10/19/16 03:05 White Blood Count 11.1x10^3/uL (4.0-11.0) Red Blood Count 4.90x10^6/uL (4.30-5.70) Hemoglobin 15.0g/dL (13.0-17.5) Hematocrit 44.0% (39.0-53.0) Mean Corpuscular Volume 90fL (79-100) Mean Corpuscular Hemoglobin 31pg (25-35) Mean Corpuscular Hemoglobin Concent 34g/dL (31-37) Red Cell Distribution Width 13.5% (11.5-14.5) Platelet Count 365x10^3/uL (140-400) Neutrophils (%) (Auto) 71% (31-73) Lymphocytes (%) (Auto) 20% (24-48) Monocytes (%) (Auto) 7% (0-9) Eosinophils (%) (Auto) 2% (0-3) Basophils (%) (Auto) 1% (0-3) Neutrophils # (Auto) 7.9x10^3uL (1.8-7.7) Lymphocytes # (Auto) 2.2x10^3/uL (1.0-4.8) Monocytes # (Auto) 0.7x10^3/uL (0.0-1.1) Eosinophils # (Auto) 0.2x10^3/uL (0.0-0.7) Basophils # (Auto) 0.1x10^3/uL (0.0-0.2) Prothrombin Time 13.2SEC (11.7-14.0) Prothromb Time International Ratio 1.1 (0.8-1.1) Sodium Level 142mmol/L (136-145) Potassium Level 4.3mmol/L (3.5-5.1) Chloride Level 107mmol/L (98-107) Carbon Dioxide Level 26mmol/L (21-32) Anion Gap 9 (6-14) Blood Urea Nitrogen 11mg/dL (8-26) Creatinine 0.9mg/dL (0.7-1.3) Estimated GFR (Cockcroft-Gault) 82.7 Glucose Level 131mg/dL (70-99) Calcium Level 8.9mg/dL (8.5-10.1) Magnesium Level 1.8mg/dL (1.8-2.4) Troponin I Quantitative 0.133ng/mL (0.000-0.055) 0.099ng/mL (0.000-0.055) 0.114ng/mL (0.000-0.055) GH-Bow-D-Type Natriuretic Peptide 327pg/mL (0-124) Triglycerides Level 134mg/dL (0-150) Cholesterol Level 156mg/dL (0-200) LDL Cholesterol, Calculated 93mg/dL (0-100) VLDL Cholesterol, Calculated 27mg/dL (0-40) HDL Cholesterol 36mg/dL (40-60) Cholesterol/HDL Ratio 4.3 Review of Systems Review of Systems Denies fever, nausea, vomiting, Denies SOB and CP, breathing comfortably on nasal cannula 2 l, Assessment and Plan Assessmemt and Plan ASSESSMENT: - Acute Chest Pain - NSTEMI PLAN: - Continue care per floor protocol - Continue cardiac monitoring - Continue Heparin drip - Recheck labs in AM - Probable Cardiac Cath tomorrow - Appreciate subspecialities inputs and recommendations Problems Medical Problems: (1) Chest pain Status: Acute (2) NSTEMI (non-ST elevated myocardial infarction) Status: Acute Problems: Comment Review of Relevant I have reviewed the following items natalie (where applicable) has been applied. Labs Laboratory Tests Test 10/18/16 14:26 10/18/16 21:10 10/19/16 03:05 White Blood Count 11.1x10^3/uL (4.0-11.0) Red Blood Count 4.90x10^6/uL (4.30-5.70) Hemoglobin 15.0g/dL (13.0-17.5) Hematocrit 44.0% (39.0-53.0) Mean Corpuscular Volume 90fL (79-100) Mean Corpuscular Hemoglobin 31pg (25-35) Mean Corpuscular Hemoglobin Concent 34g/dL (31-37) Red Cell Distribution Width 13.5% (11.5-14.5) Platelet Count 365x10^3/uL (140-400) Neutrophils (%) (Auto) 71% (31-73) Lymphocytes (%) (Auto) 20% (24-48) Monocytes (%) (Auto) 7% (0-9) Eosinophils (%) (Auto) 2% (0-3) Basophils (%) (Auto) 1% (0-3) Neutrophils # (Auto) 7.9x10^3uL (1.8-7.7) Lymphocytes # (Auto) 2.2x10^3/uL (1.0-4.8) Monocytes # (Auto) 0.7x10^3/uL (0.0-1.1) Eosinophils # (Auto) 0.2x10^3/uL (0.0-0.7) Basophils # (Auto) 0.1x10^3/uL (0.0-0.2) Prothrombin Time 13.2SEC (11.7-14.0) Prothromb Time International Ratio 1.1 (0.8-1.1) Sodium Level 142mmol/L (136-145) Potassium Level 4.3mmol/L (3.5-5.1) Chloride Level 107mmol/L (98-107) Carbon Dioxide Level 26mmol/L (21-32) Anion Gap 9 (6-14) Blood Urea Nitrogen 11mg/dL (8-26) Creatinine 0.9mg/dL (0.7-1.3) Estimated GFR (Cockcroft-Gault) 82.7 Glucose Level 131mg/dL (70-99) Calcium Level 8.9mg/dL (8.5-10.1) Magnesium Level 1.8mg/dL (1.8-2.4) Troponin I Quantitative 0.133ng/mL (0.000-0.055) 0.099ng/mL (0.000-0.055) 0.114ng/mL (0.000-0.055) LG-Bpd-O-Type Natriuretic Peptide 327pg/mL (0-124) Triglycerides Level 134mg/dL (0-150) Cholesterol Level 156mg/dL (0-200) LDL Cholesterol, Calculated 93mg/dL (0-100) VLDL Cholesterol, Calculated 27mg/dL (0-40) HDL Cholesterol 36mg/dL (40-60) Cholesterol/HDL Ratio 4.3 Laboratory Tests Test 10/18/16 14:26 10/18/16 21:10 10/19/16 03:05 White Blood Count 11.1x10^3/uL (4.0-11.0) Red Blood Count 4.90x10^6/uL (4.30-5.70) Hemoglobin 15.0g/dL (13.0-17.5) Hematocrit 44.0% (39.0-53.0) Mean Corpuscular Volume 90fL (79-100) Mean Corpuscular Hemoglobin 31pg (25-35) Mean Corpuscular Hemoglobin Concent 34g/dL (31-37) Red Cell Distribution Width 13.5% (11.5-14.5) Platelet Count 365x10^3/uL (140-400) Neutrophils (%) (Auto) 71% (31-73) Lymphocytes (%) (Auto) 20% (24-48) Monocytes (%) (Auto) 7% (0-9) Eosinophils (%) (Auto) 2% (0-3) Basophils (%) (Auto) 1% (0-3) Neutrophils # (Auto) 7.9x10^3uL (1.8-7.7) Lymphocytes # (Auto) 2.2x10^3/uL (1.0-4.8) Monocytes # (Auto) 0.7x10^3/uL (0.0-1.1) Eosinophils # (Auto) 0.2x10^3/uL (0.0-0.7) Basophils # (Auto) 0.1x10^3/uL (0.0-0.2) Prothrombin Time 13.2SEC (11.7-14.0) Prothromb Time International Ratio 1.1 (0.8-1.1) Sodium Level 142mmol/L (136-145) Potassium Level 4.3mmol/L (3.5-5.1) Chloride Level 107mmol/L (98-107) Carbon Dioxide Level 26mmol/L (21-32) Anion Gap 9 (6-14) Blood Urea Nitrogen 11mg/dL (8-26) Creatinine 0.9mg/dL (0.7-1.3) Estimated GFR (Cockcroft-Gault) 82.7 Glucose Level 131mg/dL (70-99) Calcium Level 8.9mg/dL (8.5-10.1) Magnesium Level 1.8mg/dL (1.8-2.4) Troponin I Quantitative 0.133ng/mL (0.000-0.055) 0.099ng/mL (0.000-0.055) 0.114ng/mL (0.000-0.055) HY-Ver-A-Type Natriuretic Peptide 327pg/mL (0-124) Triglycerides Level 134mg/dL (0-150) Cholesterol Level 156mg/dL (0-200) LDL Cholesterol, Calculated 93mg/dL (0-100) VLDL Cholesterol, Calculated 27mg/dL (0-40) HDL Cholesterol 36mg/dL (40-60) Cholesterol/HDL Ratio 4.3 Medications Current Medications Nitroglycerin (Nitrostat) 0.4 mg PRN Q5MIN PRN SL CP RATING > 1/10; Start at 14:30; Stop 10/18/16 at 17:47; Status DC Fentanyl Citrate (Fentanyl 2ml Vial) 50 mcg PRN Q15MIN PRN IV PAIN GREATER THAN 3/10; Start 10/18/16 at 14:30; Stop 10/18/16 at 17:33; Status DC Aspirin (Jessy Aspirin) 325 mg 1X ONCE PO Last administered on 10/18/16 16:47 ; Start 10/18/16 at 16:15; Stop 10/18/16 at 16:32; Status DC Enoxaparin Sodium (Lovenox 100mg Syringe) 90 mg 1X ONCE SQ Last administered on 10/18/16 16:47; Start 10/18/16 at 16:15; Stop 10/18/16 at 16:32; Status DC Ondansetron HCl (Zofran) 4 mg PRN Q8HRS PRN IV NAUSEA/VOMITING; Start 10/18/16 at 16:15; Stop 10/18/16 at 17:33; Status DC Morphine Sulfate 4 mg PRN Q2HR PRN IV PAIN; Start 10/18/16 at 16:15; Stop at 17:33; Status DC Acetaminophen (Tylenol) 650 mg PRN Q4HRS PRN PO FEVER; Start 10/18/16 at 16:15; Stop 10/19/16 at 16:14 Nitroglycerin (Nitrostat) 0.4 mg PRN Q5MIN PRN SL CHEST PAIN; Start 10/18/16 at 16:15; Stop 10/19/16 at 16:14; Status UNV Neomycin/ Polymyxin/ Bacitracin (Triple Antibiotic Ointment) 1 pkt STK-MED ONCE TP ; Start 10/18/16 at 16:50; Stop 10/18/16 at 16:51; Status DC Neomycin/ Polymyxin/ Bacitracin (Triple Antibiotic Ointment) 1 pkt 1X ONCE TP Last administered on 10/18/16 16:57; Start 10/18/16 at 17:15; Stop 10/18/16 at 17: 16; Status DC Morphine Sulfate 2 mg PRN Q2HR PRN IV PAIN Last administered on 10/18/16 18:21 ; Start 10/18/16 at 17:45 Ondansetron HCl (Zofran) 4 mg PRN Q6HRS PRN IV NAUSEA/VOMITING; Start 10/18/16 at 17:32 Nitroglycerin (Nitrostat) 0.4 mg PRN Q5MIN PRN SL CHEST PAIN; Start 10/18/16 at 17:45 Diphenhydramine HCl (Benadryl) 25 mg PRN QHS PRN PO INSOMNIA; Start 10/18/16 at 17:45 Enoxaparin Sodium (Lovenox 100mg Syringe) 90 mg Q12HR SQ ; Start 10/19/16 at 09: 00; Stop 10/19/16 at 09:00; Status DC Docusate Sodium (Colace) 100 mg DAILY PO Last administered on 10/19/16 10:22; Start 10/18/16 at 18:00 Pneumococcal Polyvalent Vaccine (Do NOT chart on this placeholder) 1 each 1X ONCE MC ; Start 10/19/16 at 09:00; Stop 10/19/16 at 09:01; Status UNV Pneumococcal Polyvalent Vaccine 0.5 ml 0.5 ml ONCE ONCE VAX IM ; Start 10/19/16 at 09:00; Stop 10/19/16 at 09:01; Status DC Heparin Sodium/ Dextrose 500 ml @ 0 mls/hr CONT PRN IV SEE I/O RECORD; Start at 08:15 Heparin Sodium (Porcine) 2200 unit 2,200 unit PRN Q6HRS PRN IV FOR UFH LEVEL LESS THAN 0.2; Start 10/19/16 at 08:15 Sodium Chloride (Iv Sodium Chloride 0.9% 1000ml Bag) 1,000 ml @ 75 mls/hr [id number] IV Last administered on 10/19/16t 10:15; Start 10/20/16 at 07:30 Active Scripts Active Reported [Tumeric Curcumin] 500 Mg PO BID Coconut Oil 120 Ml Oil 120 Ml MC Dyhwtsh-Cvsif-Nee Complex Cplt (Gluc/Danis-Msm#1/Vit C/Jorge/Bor) 1 Each Tablet 1 Each PO BID Lutein 20 Mg Capsule 20 Mg PO DAILY Fish Oil 1,000 Mg Capsule ([place]-3 Fatty Acids/Fish Oil) 1 Each Capsule 2 Each PO Omeprazole 40 Mg Capsule.dr 40 Mg PO DAILY Vitals/I & O Vital Sign - Last 24 Hours 10/18/16 10/18/16 10/18/16 10/18/16 14:13 14:30 15:00 15:30 Temp 98.2 98.2 Pulse 67 64 66 66 Resp 18 18 20 17 B/P 184/86 134/67 136/66 141/73 Pulse Ox 98 95 94 95 O2 Delivery Room Air Room Air Room Air Room Air 10/18/16 10/18/16 10/18/16 10/18/16 16:07 16:37 17:07 17:37 Pulse 70 70 68 74 Resp 20 20 20 16 B/P 138/63 148/71 151/69 126/60 Pulse Ox 96 96 96 96 O2 Delivery Room Air Room Air Room Air Room Air 10/18/16 10/18/16 10/18/16 10/18/16 18:21 18:43 19:00 19:40 Temp 97.5 98.1 97.5 98.1 Pulse 82 63 Resp 18 18 21 B/P 170/108 137/56 Pulse Ox 98 94 O2 Delivery Room Air Room Air Room Air 10/18/16 10/18/16 10/19/16 10/19/16 20:00 23:35 02:46 07:43 Temp 98.2 98.3 98.3 98.2 98.3 98.3 Pulse 57 58 61 Resp 18 B/P 119/53 136/69 134/70 Pulse Ox 92 97 95 O2 Delivery Room Air Room Air Nasal Cannula Room Air O2 Flow Rate 2.0 10/19/16 10/19/16 08:00 10:33 Temp 98.1 98.1 Pulse 55 Resp 19 B/P 131/69 Pulse Ox 97 O2 Delivery Room Air Nasal Cannula O2 Flow Rate 2.0 Intake and Output 10/18/16 10/18/16 10/19/16 15:00 23:00 07:00 Output Total 700 ml Balance -700 ml TRINI VALLES III DO Oct 19, 2016 12:06
[2016-10-19 14:28] VITALS: BP 116/69
[2016-10-19 19:25] VITALS: BP 111/61
[2016-10-19 22:35] VITALS: BP 142/71
[2016-10-20] VITALS (16 sets, daily range): BP systolic 118–162; BP diastolic 62–97
[2016-10-20 07:59] LABS: BASO # 0.1 x10^3/uL (0.0-0.2); BASO % 1 % (0-3); EOS % 3 % (0-3); HEMATOCRIT 42.8 % (39.0-53.0); HEMOGLOBIN 14.4 g/dL (13.0-17.5); LYMPH % 26 % (24-48); MEAN CORPUSCULAR HEMOGLOBIN 30 pg (25-35); MEAN CORPUSCULAR HGB CONC 34 g/dL (31-37); MEAN CORPUSCULAR VOLUME 90 fL (79-100); MONO % 8 % (0-9); NEUT % 61 % (31-73); PLATELET COUNT 334 x10^3/uL (140-400); RED BLOOD COUNT 4.74 x10^6/uL (4.30-5.70); RED CELL DISTRIBUTION WIDTH 13.5 % (11.5-14.5); WHITE BLOOD COUNT 7.5 x10^3/uL (4.0-11.0)
[2016-10-20 08:08] LABS: CALCIUM 8.6 mg/dL (8.5-10.1); CREATININE 0.8 mg/dL (0.7-1.3); GFR 94.8
[2016-10-20] MEDS: DOCUSATE SODIUM 100 MG CAPSULE PO SCH (09:00)
[2016-10-20] MEDS ORDERED: IOHEXOL 300 MG/ML 100ML VIAL. ONE (10:37)
[2016-10-20] MEDS ORDERED: LIDOCAINE 2% 20 ML VIAL. ONE (10:38)
[2016-10-20] MEDS ORDERED: HEPARIN for IV BOLUS 10,000 UNIT/10 ML VIAL. ONE ×2 (10:59→11:53)
[2016-10-20] MEDS ORDERED: MIDAZOLAM HCL 2 MG/2 ML VIAL. ONE (10:59)
[2016-10-20] MEDS ORDERED: VERAPAMIL 5 MG/2 ML VIAL. ONE (10:59)
[2016-10-20] MEDS ORDERED: FENTANYL PF 100 MCG/2 ML VIAL. ONE (10:59)
[2016-10-20] MEDS ORDERED: NITROGLYCERIN 200 MCG/2 ML SYRINGE FOR CATH/VASC LAB. ONE (10:59)
[2016-10-20] MEDS ORDERED: ASPIRIN 325 MG TABLET ONE (11:24)
[2016-10-20] MEDS ORDERED: LIDOCAINE 2% 20 ML VIAL. IJ ONE (11:30)
[2016-10-20] MEDS ORDERED: VERAPAMIL 5 MG/2 ML VIAL. IART ONE (11:30)
[2016-10-20] MEDS ORDERED: ASPIRIN 325 MG TABLET PO ONE (11:30)
[2016-10-20] MEDS ORDERED: HEPARIN for IV BOLUS 10,000 UNIT/10 ML VIAL. IART ONE (11:30)
[2016-10-20] MEDS ORDERED: IOHEXOL 300 MG/ML 100ML VIAL. IART ONE (11:30)
[2016-10-20] MEDS ORDERED: NITROGLYCERIN 200 MCG/2 ML SYRINGE FOR CATH/VASC LAB. IART ONE (11:30)
[2016-10-20] MEDS ORDERED: BIVALIRUDIN 250 MG VIAL IV ONE (11:44)
[2016-10-20] MEDS ORDERED: CONTRAST GIVEN MC PRN (11:45)
[2016-10-20] MEDS ORDERED: MIDAZOLAM HCL 2 MG/2 ML VIAL. IV ONE (11:45)
[2016-10-20] MEDS ORDERED: FENTANYL PF 100 MCG/2 ML VIAL. IV ONE (11:45)
[2016-10-20] MEDS ORDERED: TIROFIBAN 5MG -0.9% NS 100 ML IV ONE ×2 (11:46→12:00)
[2016-10-20] MEDS ORDERED: PRASUGREL 10 MG TABLET. PO ONE (12:15)
[2016-10-20] MEDS ORDERED: TIROFIBAN 12.5MG -0.9% NS 250 ML IV ONE (12:38)
[2016-10-20] MEDS ORDERED: TIROFIBAN-0.9% SODIUM CHLORIDE 12.5 MG/250 ML BAG. IV ONE (12:40)
[2016-10-20] MEDS ORDERED: TIROFIBAN 12.5MG -0.9% NS 250 ML IV PRN (13:45)
--- NOTE | 2016-10-20 14:48 | PDOC ---
PROGRESS NOTES Chief Complaint Chief Complaint - Acute Chest Pain - NSTEMI, very limited elevation in troponin, History of Present Illness History of Present Illness has been out of room ambulating iss awake, alert, oriented, in no acte distress, Vitals Vitals Vital Signs Date Time Temp Pulse Resp B/P Pulse Ox O2 Delivery O2 Flow Rate FiO2 10/20/16 12:42 55 143/83 10/20/16 12:41 10 98 Nasal Cannula 2.0 10/20/16 07:00 98.0 98.0 Physical Exam General: Alert, Oriented X3, Cooperative, No acute distress Heart: Regular rate Abdomen: Normal bowel sounds, Soft Extremities: Normal pulses Skin: No rashes, No breakdown, No significant lesion Labs LABS Laboratory Tests Test 10/19/16 16:50 10/19/16 23:13 10/20/16 07:50 Heparin Anti-Xa Act, Unfractionated 0.33IU/mL (0.30-0.70) 0.31IU/mL (0.30-0.70) White Blood Count 7.5x10^3/uL (4.0-11.0) Red Blood Count 4.74x10^6/uL (4.30-5.70) Hemoglobin 14.4g/dL (13.0-17.5) Hematocrit 42.8% (39.0-53.0) Mean Corpuscular Volume 90fL (79-100) Mean Corpuscular Hemoglobin 30pg (25-35) Mean Corpuscular Hemoglobin Concent 34g/dL (31-37) Red Cell Distribution Width 13.5% (11.5-14.5) Platelet Count 334x10^3/uL (140-400) Neutrophils (%) (Auto) 61% (31-73) Lymphocytes (%) (Auto) 26% (24-48) Monocytes (%) (Auto) 8% (0-9) Eosinophils (%) (Auto) 3% (0-3) Basophils (%) (Auto) 1% (0-3) Neutrophils # (Auto) 4.6x10^3uL (1.8-7.7) Lymphocytes # (Auto) 2.0x10^3/uL (1.0-4.8) Monocytes # (Auto) 0.6x10^3/uL (0.0-1.1) Eosinophils # (Auto) 0.2x10^3/uL (0.0-0.7) Basophils # (Auto) 0.1x10^3/uL (0.0-0.2) Sodium Level 142mmol/L (136-145) Potassium Level 4.0mmol/L (3.5-5.1) Chloride Level 108mmol/L (98-107) Carbon Dioxide Level 24mmol/L (21-32) Anion Gap 10 (6-14) Blood Urea Nitrogen 13mg/dL (8-26) Creatinine 0.8mg/dL (0.7-1.3) Estimated GFR (Cockcroft-Gault) 94.8 Glucose Level 100mg/dL (70-99) Calcium Level 8.6mg/dL (8.5-10.1) Assessment and Plan Assessmemt and Plan cardiac cath today Dc plan soon pending results of above Problems Medical Problems: (1) Chest pain Status: Acute (2) NSTEMI (non-ST elevated myocardial infarction) Status: Acute Problems: Comment Review of Relevant I have reviewed the following items natalie (where applicable) has been applied. Labs Laboratory Tests Test 10/18/16 21:10 10/19/16 03:05 10/19/16 16:50 10/19/16 23:13 Troponin I Quantitative 0.099ng/mL (0.000-0.055) 0.114ng/mL (0.000-0.055) Triglycerides Level 134mg/dL (0-150) Cholesterol Level 156mg/dL (0-200) LDL Cholesterol, Calculated 93mg/dL (0-100) VLDL Cholesterol, Calculated 27mg/dL (0-40) HDL Cholesterol 36mg/dL (40-60) Cholesterol/HDL Ratio 4.3 Heparin Anti-Xa Act, Unfractionated 0.33IU/mL (0.30-0.70) 0.31IU/mL (0.30-0.70) Test 10/20/16 07:50 White Blood Count 7.5x10^3/uL (4.0-11.0) Red Blood Count 4.74x10^6/uL (4.30-5.70) Hemoglobin 14.4g/dL (13.0-17.5) Hematocrit 42.8% (39.0-53.0) Mean Corpuscular Volume 90fL (79-100) Mean Corpuscular Hemoglobin 30pg (25-35) Mean Corpuscular Hemoglobin Concent 34g/dL (31-37) Red Cell Distribution Width 13.5% (11.5-14.5) Platelet Count 334x10^3/uL (140-400) Neutrophils (%) (Auto) 61% (31-73) Lymphocytes (%) (Auto) 26% (24-48) Monocytes (%) (Auto) 8% (0-9) Eosinophils (%) (Auto) 3% (0-3) Basophils (%) (Auto) 1% (0-3) Neutrophils # (Auto) 4.6x10^3uL (1.8-7.7) Lymphocytes # (Auto) 2.0x10^3/uL (1.0-4.8) Monocytes # (Auto) 0.6x10^3/uL (0.0-1.1) Eosinophils # (Auto) 0.2x10^3/uL (0.0-0.7) Basophils # (Auto) 0.1x10^3/uL (0.0-0.2) Sodium Level 142mmol/L (136-145) Potassium Level 4.0mmol/L (3.5-5.1) Chloride Level 108mmol/L (98-107) Carbon Dioxide Level 24mmol/L (21-32) Anion Gap 10 (6-14) Blood Urea Nitrogen 13mg/dL (8-26) Creatinine 0.8mg/dL (0.7-1.3) Estimated GFR (Cockcroft-Gault) 94.8 Glucose Level 100mg/dL (70-99) Calcium Level 8.6mg/dL (8.5-10.1) Laboratory Tests Test 10/19/16 16:50 10/19/16 23:13 10/20/16 07:50 Heparin Anti-Xa Act, Unfractionated 0.33IU/mL (0.30-0.70) 0.31IU/mL (0.30-0.70) White Blood Count 7.5x10^3/uL (4.0-11.0) Red Blood Count 4.74x10^6/uL (4.30-5.70) Hemoglobin 14.4g/dL (13.0-17.5) Hematocrit 42.8% (39.0-53.0) Mean Corpuscular Volume 90fL (79-100) Mean Corpuscular Hemoglobin 30pg (25-35) Mean Corpuscular Hemoglobin Concent 34g/dL (31-37) Red Cell Distribution Width 13.5% (11.5-14.5) Platelet Count 334x10^3/uL (140-400) Neutrophils (%) (Auto) 61% (31-73) Lymphocytes (%) (Auto) 26% (24-48) Monocytes (%) (Auto) 8% (0-9) Eosinophils (%) (Auto) 3% (0-3) Basophils (%) (Auto) 1% (0-3) Neutrophils # (Auto) 4.6x10^3uL (1.8-7.7) Lymphocytes # (Auto) 2.0x10^3/uL (1.0-4.8) Monocytes # (Auto) 0.6x10^3/uL (0.0-1.1) Eosinophils # (Auto) 0.2x10^3/uL (0.0-0.7) Basophils # (Auto) 0.1x10^3/uL (0.0-0.2) Sodium Level 142mmol/L (136-145) Potassium Level 4.0mmol/L (3.5-5.1) Chloride Level 108mmol/L (98-107) Carbon Dioxide Level 24mmol/L (21-32) Anion Gap 10 (6-14) Blood Urea Nitrogen 13mg/dL (8-26) Creatinine 0.8mg/dL (0.7-1.3) Estimated GFR (Cockcroft-Gault) 94.8 Glucose Level 100mg/dL (70-99) Calcium Level 8.6mg/dL (8.5-10.1) Medications Current Medications Nitroglycerin (Nitrostat) 0.4 mg PRN Q5MIN PRN SL CP RATING > 1/10; Start at 14:30; Stop 10/18/16 at 17:47; Status DC Fentanyl Citrate (Fentanyl 2ml Vial) 50 mcg PRN Q15MIN PRN IV PAIN GREATER THAN 3/10; Start 10/18/16 at 14:30; Stop 10/18/16 at 17:33; Status DC Aspirin (Jessy Aspirin) 325 mg 1X ONCE PO Last administered on 10/18/16 16:47 ; Start 10/18/16 at 16:15; Stop 10/18/16 at 16:32; Status DC Enoxaparin Sodium (Lovenox 100mg Syringe) 90 mg 1X ONCE SQ Last administered on 10/18/16 16:47; Start 10/18/16 at 16:15; Stop 10/18/16 at 16:32; Status DC Ondansetron HCl (Zofran) 4 mg PRN Q8HRS PRN IV NAUSEA/VOMITING; Start 10/18/16 at 16:15; Stop 10/18/16 at 17:33; Status DC Morphine Sulfate 4 mg PRN Q2HR PRN IV PAIN; Start 10/18/16 at 16:15; Stop at 17:33; Status DC Acetaminophen (Tylenol) 650 mg PRN Q4HRS PRN PO FEVER; Start 10/18/16 at 16:15; Stop 10/19/16 at 16:14; Status DC Nitroglycerin (Nitrostat) 0.4 mg PRN Q5MIN PRN SL CHEST PAIN; Start 10/18/16 at 16:15; Stop 10/19/16 at 16:14; Status UNV Neomycin/ Polymyxin/ Bacitracin (Triple Antibiotic Ointment) 1 pkt STK-MED ONCE TP ; Start 10/18/16 at 16:50; Stop 10/18/16 at 16:51; Status DC Neomycin/ Polymyxin/ Bacitracin (Triple Antibiotic Ointment) 1 pkt 1X ONCE TP Last administered on 10/18/16 16:57; Start 10/18/16 at 17:15; Stop 10/18/16 at 17: 16; Status DC Morphine Sulfate 2 mg PRN Q2HR PRN IV PAIN Last administered on 10/18/16 18:21 ; Start 10/18/16 at 17:45 Ondansetron HCl (Zofran) 4 mg PRN Q6HRS PRN IV NAUSEA/VOMITING; Start 10/18/16 at 17:32 Nitroglycerin (Nitrostat) 0.4 mg PRN Q5MIN PRN SL CHEST PAIN; Start 10/18/16 at 17:45 Diphenhydramine HCl (Benadryl) 25 mg PRN QHS PRN PO INSOMNIA; Start 10/18/16 at 17:45 Enoxaparin Sodium (Lovenox 100mg Syringe) 90 mg Q12HR SQ ; Start 10/19/16 at 09: 00; Stop 10/19/16 at 09:00; Status DC Docusate Sodium (Colace) 100 mg DAILY PO Last administered on 10/19/16 10:22; Start 10/18/16 at 18:00 Pneumococcal Polyvalent Vaccine (Do NOT chart on this placeholder) 1 each 1X ONCE MC ; Start 10/19/16 at 09:00; Stop 10/19/16 at 09:01; Status UNV Pneumococcal Polyvalent Vaccine 0.5 ml 0.5 ml ONCE ONCE VAX IM ; Start 10/19/16 at 09:00; Stop 10/19/16 at 09:01; Status DC Heparin Sodium/ Dextrose 500 ml @ 0 mls/hr CONT PRN IV SEE I/O RECORD Last administered on 10/20/16 06:19; Start 10/19/16 at 08:15 Heparin Sodium (Porcine) 2200 unit 2,200 unit PRN Q6HRS PRN IV FOR UFH LEVEL LESS THAN 0.2; Start 10/19/16 at 08:15 Sodium Chloride (Iv Sodium Chloride 0.9% 1000ml Bag) 1,000 ml @ 75 mls/hr [id number] IV Last administered on 10/19/16 10:15; Start 10/20/16 at 07:30 Iohexol 100 ml 100 ml STK-MED ONCE .ROUTE ; Start 10/20/16 at 10:37; Stop at 10:38; Status DC Heparin Sodium/ Sodium Chloride 1,000 ml @ As Directed STK-MED ONCE .ROUTE ; Start 10/20/16 at 10:37; Stop 10/20/16 at 10:38; Status DC Lidocaine HCl 20 ml STK-MED ONCE .ROUTE ; Start 10/20/16 at 10:38; Stop 10/20/16 at 10:39; Status DC Nitroglycerin (Nitroglycerin) 200 mcg STK-MED ONCE .ROUTE ; Start 10/20/16 at 10: 59; Stop 10/20/16 at 11:00; Status DC Verapamil HCl (Verapamil) 5 mg STK-MED ONCE .ROUTE ; Start 10/20/16 at 10:59; Stop 10/20/16 at 11:00; Status DC Heparin Sodium (Porcine) 10,000 unit STK-MED ONCE .ROUTE ; Start 10/20/16 at 10: 59; Stop 10/20/16 at 11:00; Status DC Fentanyl Citrate (Fentanyl 2ml Vial) 100 mcg STK-MED ONCE .ROUTE ; Start at 10:59; Stop 10/20/16 at 11:00; Status DC Midazolam HCl (Versed) 2 mg STK-MED ONCE .ROUTE ; Start 10/20/16 at 10:59; Stop 10/20/16 at 11:00; Status DC Aspirin (Jessy Aspirin) 325 mg STK-MED ONCE .ROUTE ; Start 10/20/16 at 11:24; Stop 10/20/16 at 11:25; Status DC Nitroglycerin (Nitroglycerin) 200 mcg 1X ONCE IART Last administered on 12:42; Start 10/20/16 at 11:30; Stop 10/20/16 at 11:36; Status DC Verapamil HCl (Verapamil) 2.5 mg 1X ONCE IART Last administered on 10/20/16 12 :42; Start 10/20/16 at 11:30; Stop 10/20/16 at 11:36; Status DC Heparin Sodium (Porcine) 2,500 unit 1X ONCE IART Last administered on 12:44; Start 10/20/16 at 11:30; Stop 10/20/16 at 11:36; Status DC Heparin Sodium/ Sodium Chloride 1,000 unit 1X ONCE IART Last administered on 12:42; Start 10/20/16 at 11:30; Stop 10/20/16 at 11:36; Status DC Iohexol (Omnipaque 300 Mg/ml) 100 ml 1X ONCE IART Last administered on 12:41; Start 10/20/16 at 11:30; Stop 10/20/16 at 11:36; Status DC Lidocaine HCl 20 ml 1X ONCE IJ Last administered on 10/20/16 11:30; Start 10/20 at 11:30; Stop 10/20/16 at 11:36; Status DC Aspirin (Jessy Aspirin) 325 mg 1X ONCE PO Last administered on 10/20/16 11:30 ; Start 10/20/16 at 11:30; Stop 10/20/16 at 11:36; Status DC Midazolam HCl (Versed) 2 mg 1X ONCE IV Last administered on 10/20/16 12:43; Start 10/20/16 at 11:45; Stop 10/20/16 at 11:46; Status DC Fentanyl Citrate (Fentanyl 2ml Vial) 100 mcg 1X ONCE IV Last administered on 12:41; Start 10/20/16 at 11:45; Stop 10/20/16 at 11:46; Status DC Info (Do NOT chart on this entry -- for MONITORING) 1 each PRN DAILY PRN MC SEE COMMENTS; Start 10/20/16 at 11:45; Stop 10/22/16 at 11:44 Bivalirudin 250 mg 250 mg STK-MED ONCE IV ; Start 10/20/16 at 11:44; Stop at 11:45; Status DC Tirofiban/Sodium Chloride (Aggrastat 5 Mg/ 100 ml Premix) 100 ml @ As Directed STK-MED ONCE IV ; Start 10/20/16 at 11:46; Stop 10/20/16 at 11:47; Status DC Heparin Sodium (Porcine) 81638 unit 10,000 unit STK-MED ONCE .ROUTE ; Start 10/20 at 11:53; Stop 10/20/16 at 11:54; Status DC Tirofiban/Sodium Chloride (Aggrastat 5 Mg/ 100 ml Premix) 100 ml @ 1,200 mls/ hr 1X ONCE IV Last administered on 10/20/16 12:00; Start 10/20/16 at 12:00; Stop 10/20/16 at 12:11; Status DC Prasugrel 60 mg 60 mg 1X ONCE PO Last administered on 10/20/16 12:40; Start at 12:15; Stop 10/20/16 at 12:16; Status DC Tirofiban/Sodium Chloride 250 ml @ As Directed STK-MED ONCE IV ; Start 10/20/16 at 12:38; Stop 10/20/16 at 12:39; Status DC Tirofiban/Sodium Chloride (Aggrastat 12.5 Mg/250 ml Premix) 250 ml @ 0 mls/hr CONT PRN IV PER PROTOCOL; Start 10/20/16 at 13:45; Stop 10/21/16 at 00:00 Active Scripts Active Reported [Tumeric Curcumin] 500 Mg PO BID Coconut Oil 120 Ml Oil 120 Ml MC Ewwrmbe-Kaxof-Anx Complex Cplt (Gluc/Danis-Msm#1/Vit C/Jorge/Bor) 1 Each Tablet 1 Each PO BID Lutein 20 Mg Capsule 20 Mg PO DAILY Fish Oil 1,000 Mg Capsule ([place]-3 Fatty Acids/Fish Oil) 1 Each Capsule 2 Each PO Omeprazole 40 Mg Capsule.dr 40 Mg PO DAILY Vitals/I & O Vital Sign - Last 24 Hours 10/19/16 10/19/16 10/19/16 10/20/16 19:25 20:00 22:35 03:35 Temp 98.3 97.7 98.2 98.3 97.7 98.2 Pulse 65 65 56 Resp 18 20 18 B/P 111/61 142/71 136/88 Pulse Ox 96 98 93 O2 Delivery Nasal Cannula Room Air Nasal Cannula Room Air O2 Flow Rate 2.0 2.0 10/20/16 10/20/16 10/20/16 10/20/16 07:00 08:00 12:20 12:41 Temp 98.0 98.0 Pulse 67 51 Resp 18 14 10 B/P 136/73 Pulse Ox 97 97 98 O2 Delivery Room Air Room Air Nasal Cannula Nasal Cannula O2 Flow Rate 2.0 2.0 10/20/16 12:42 Pulse 55 B/P 143/83 Intake and Output 10/19/16 10/19/16 10/20/16 15:00 23:00 07:00 Intake Total 1410 ml 700 ml 600 ml Output Total 1300 ml 1250 ml 850 ml Balance 110 ml -550 ml -250 ml TRICIA KYLE MD Oct 20, 2016 14:48
--- NOTE | 2016-10-20 18:04 | CARD ---
APPROVED REPORT Procedure(s) performed: Left Heart Catheterization Right transradial approach PTCA with Stenting To LAD IVUS To LAD HISTORY The patient is a 71 year-old male with a history of : family history of premature CAD. INDICATION The indication(s) include : non-STEMI (>72 hrs to = 7 days). CASE TECHNIQUE During this case, Fluoroscopy and low osmolar contrast were used for imaging. PROCEDURE NARRATIVE The patient was brought electively to the cardiac catheterization lab. A timeout was performed confi rming the patient's name, date of , procedure, and site of procedure. All necessary personnel w ere wearing the appropriate protective equipment and radiation monitor devices. After explaining the risks and benefits of the procedure and alternatives, informed consent was obtained. (See nursing no shu for medications administered). The right wrist was sterilely prepped and draped in the usual fas hion. The right wrist was infiltrated with 1 mL of 2% lidocaine for subcutaneous anesthesia. A 6 Fr ench Terumo glide sheath was inserted into the right radial artery without difficulty. Right and lef t coronary angiography was performed using a 6Fr TIG 4.0 catheter. HEMODYNAMICS: LVEDP 18 mm Hg No gradient on LV to aortic pullback. LEFT VENTRICULOGRAM: EF 55% Anterobasal: Normal. Anterolateral: Normal Apical: Normal Diaphragmatic: Normal Posterobasal: Normal *No mitral regurgitation. CORONARY ANGIOGRAPHY: LM is a large caliber vessel with normal angiographic appearance. LAD is a large caliber vessel with an ostial/proximal 80-90% stenosis. D1 is a moderate caliber vessel with mild diffuse irregularities of up to 40% LCx is a moderate caliber non-dominant vessel with normal angiographic appearance. OM1 is a moderate caliber vessel with normal angiographic appearance. RCA is a large caliber dominant vessel with mild luminal irregularities of up to 30%. RPDA and RPL are moderate caliber vessels with luminal irregularities of up to 30%. INTERVENTIONAL TECHNIQUE: PCI OF THE LAD, IVUS Based upon the angiographic findings and presentation an intervention was performed. Through a 6F EBU 3.5 guide catheter, a 0.014'' Prowater wire was used to cross the LAD lesion. A second wire was plac ed in the distal LCx. A 3.0/12 balloon was used to angioplasty the lesion at 12 gerardo. Next, a 4.0/15 X ience PALMER was implanted at 12 gerardo with 0% residual stenosis and BELTRAN 3 flow in the vessel. Apposition of the stent was assessed with IVUS which revealed excellent stent expansion. Left ventricular end d iastolic pressure was obtained with a pigtail catheter and pullback was performed after left ventricu lography. All catheter exchanges and advancements were performed over a guidewire. At case completi on the right radial sheath was removed and a Terumo radial band was applied with 20 ml of air. The p atient tolerated the procedure well and there were no immediate complications. The patient was given Prasugrel 60mg at case completion. Conclusion 1. One vessel critical LAD disease. 2. Successful PCI of the ostial/proximal LAD with implantation of a Xience 4.0/15 PALMER. 3. Normal LV function. EF 55% Recommendations ASA 81mg daily Prasugrel 10mg daily for 1 full year. High dose statin therapy. Low dose sharlene-inh. Cardiac rehab referral made.
[2016-10-20] MEDS ORDERED: ATORVASTATIN CALCIUM 40 MG TABLET. PO SCH (22:30)
[2016-10-20] MEDS: IV NORMAL SALINE 1000ML BAG 1,000 ML IV SCH (22:56)
[2016-10-21 03:28] LABS: BASO # 0.1 x10^3/uL (0.0-0.2); BASO % 1 % (0-3); EOS % 3 % (0-3); HEMATOCRIT 41.3 % (39.0-53.0); HEMOGLOBIN 14.2 g/dL (13.0-17.5); LYMPH # 2.3 x10^3/uL (1.0-4.8); LYMPH % 24 % (24-48); MEAN CORPUSCULAR HEMOGLOBIN 31 pg (25-35); MEAN CORPUSCULAR HGB CONC 34 g/dL (31-37); MEAN CORPUSCULAR VOLUME 89 fL (79-100); MONO % 8 % (0-9); NEUT % 65 % (31-73); PLATELET COUNT 347 x10^3/uL (140-400); RED BLOOD COUNT 4.65 x10^6/uL (4.30-5.70); RED CELL DISTRIBUTION WIDTH 13.9 % (11.5-14.5); WHITE BLOOD COUNT 9.4 x10^3/uL (4.0-11.0)
[2016-10-21 03:30] VITALS: BP 132/73
[2016-10-21 03:35] LABS: CALCIUM 8.6 mg/dL (8.5-10.1); CREATININE 0.9 mg/dL (0.7-1.3); GFR 82.7; POTASSIUM 3.9 mmol/L (3.5-5.1)
[2016-10-21 07:00] VITALS: BP 165/72
[2016-10-21] MEDS ORDERED: PRASUGREL 10 MG TABLET. PO SCH (08:00)
[2016-10-21] MEDS ORDERED: ASPIRIN ENTERIC COATED 81 MG TABLET.DR. PO SCH (08:00)
[2016-10-21] MEDS: DOCUSATE SODIUM 100 MG CAPSULE PO SCH (08:18)
[2016-10-21] MEDS ORDERED: LISINOPRIL 10 MG TABLET PO SCH (09:00)
[2016-10-21] MEDS: IV NORMAL SALINE 1000ML BAG 1,000 ML IV SCH (10:10)
[2016-10-21 11:00] VITALS: BP 126/63
--- NOTE | 2016-10-21 11:09 | PDOC ---
ROGERS HARRINGTON CUTTING MACHINE OFFBEARER 10/21/16 1109: CARDIO Progress Notes Date and Time Date of Service 10/21/16 Time of Evaluation 1050 Subjective Subjective: No Chest Pain, No shortness of breath, No Palpitations Vitals Vitals Vital Signs Date Time Temp Pulse Resp B/P Pulse Ox O2 Delivery O2 Flow Rate FiO2 10/21/16 08:18 64 165/72 10/21/16 08:00 Room Air 10/21/16 07:00 97.6 16 96 97.6 10/20/16 12:41 2.0 Weight Weight [ ] Input and Output Intake and Output Intake and Output 10/21/16 07:00 Intake Total 1772.2 ml Output Total 3125 ml Balance -1352.8 ml Intake Oral 1080 ml IV Total 692.2 ml Output Urine Total 3125 ml Laboratory Labs Laboratory Tests Test 10/21/16 03:00 White Blood Count 9.4x10^3/uL (4.0-11.0) Red Blood Count 4.65x10^6/uL (4.30-5.70) Hemoglobin 14.2g/dL (13.0-17.5) Hematocrit 41.3% (39.0-53.0) Mean Corpuscular Volume 89fL (79-100) Mean Corpuscular Hemoglobin 31pg (25-35) Mean Corpuscular Hemoglobin Concent 34g/dL (31-37) Red Cell Distribution Width 13.9% (11.5-14.5) Platelet Count 347x10^3/uL (140-400) Neutrophils (%) (Auto) 65% (31-73) Lymphocytes (%) (Auto) 24% (24-48) Monocytes (%) (Auto) 8% (0-9) Eosinophils (%) (Auto) 3% (0-3) Basophils (%) (Auto) 1% (0-3) Neutrophils # (Auto) 6.1x10^3uL (1.8-7.7) Lymphocytes # (Auto) 2.3x10^3/uL (1.0-4.8) Monocytes # (Auto) 0.7x10^3/uL (0.0-1.1) Eosinophils # (Auto) 0.2x10^3/uL (0.0-0.7) Basophils # (Auto) 0.1x10^3/uL (0.0-0.2) Sodium Level 144mmol/L (136-145) Potassium Level 3.9mmol/L (3.5-5.1) Chloride Level 109mmol/L (98-107) Carbon Dioxide Level 24mmol/L (21-32) Anion Gap 11 (6-14) Blood Urea Nitrogen 13mg/dL (8-26) Creatinine 0.9mg/dL (0.7-1.3) Estimated GFR (Cockcroft-Gault) 82.7 Glucose Level 95mg/dL (70-99) Calcium Level 8.6mg/dL (8.5-10.1) Physical Exam HEENT: Neck Supple W Full Motion Chest: Symmetric LUNGS: Clear to Auscultation Heart: S1S2, RRR Abdomen: Soft N/T Extremities: No Edema, No Calf Tenderness, Other (right radial arteriotomy site CDI. neurovascular status intact. ) Neurology: alert, oriented, follow commands Assessment Assessment 1. Chest pain 2. CAD s/p PCI/PALMER to LAD 3. Hypertension 4. Hyperlipidemia Recommendations DAPT with ASA and prasugrel Risk stratification modification no BB with bradycardia; will reassess on an outpatient basis cardiac rehab referral Patient to f/u in our office with Dr. Kidd in 6 weeks as scheduled. JANNETH KIDD MD 10/22/16 1057: CARDIO Progress Notes Plan Plan Pt. seen and examined. Agree with above STRAPPING MACHINE TENDER note. No acute events overnight. Denies any pain. Normal cardiac exam. labs/meds reviewed. Ok to dc. Will f/u in 6 weeks. Late entry for 10/21/2016 ROGERS HARRINGTON APRN Oct 21, 2016 11:09 JANNETH KIDD MD Oct 22, 2016 10:57
[2016-10-21] MEDS ORDERED: LISI10TA2 PO (11:21)
[2016-10-21] MEDS ORDERED: PRAS10TA4 PO (11:21)
[2016-10-21] MEDS ORDERED: ASPI81TA9 PO (11:21)
[2016-10-21] MEDS ORDERED: ATOR40TA59 PO (11:21)
== END 2016-10-21 12:20 | disposition home or self-care (01) | DRG 247 ==
LOC: ER 14:04 → 2 NORTH 16:00
PROVIDERS: ADMIT Internal Medicine; ATTEND Internal Medicine
PROC: 4A023N7 Measurement of Cardiac Sampling and Pressure, Left Heart, Percutaneous Approach (ICD-10-PCS; principal; 2016-10-20)
PROC: 027034Z Dilation of Coronary Artery, One Artery with Drug-eluting Intraluminal Device, Percutaneous Approach (ICD-10-PCS; 2016-10-20)
PROC: B2111ZZ Fluoroscopy of Multiple Coronary Arteries using Low Osmolar Contrast (ICD-10-PCS; 2016-10-20)
DX: I21.4 Non-ST elevation (NSTEMI) myocardial infarction (principal); E78.5 Hyperlipidemia, unspecified; I10 Essential (primary) hypertension; G89.29 Other chronic pain; M54.5 Low back pain; I25.110 Atherosclerotic heart disease of native coronary artery with unstable angina pectoris; Z82.49 Family history of ischemic heart disease and other diseases of the circulatory system; Z98.61 Coronary angioplasty status
CPT/HCPCS: 36415; 71010; 80048; 80061; 83735; 83880; 84484; 85027; 85347; 85520; 85610; 92928; 92978; 93005; 93458; 96372; 96374; C1725; C1753; C1769; C1874; C1887; C1892; J1650; J2250; J2270; J3010; J3490; J7030; Q9967; 99285-25; J3246

== ENCOUNTER → 2017-04-15 | Outpatient (CLI) | payer MEDICARE, BC ==
[~2017-04-15] MED LIST changes: +ASPI-612 PO; +ATOR40TA59 PO; +CLOP75TA PO; +COCO1000 PO; +DOCU-109 PO; +HYDR-2762 PO; +LISI10TA2 PO; -LUTE20CA2 PO; +LUTE20CA4 PO; +PRAS10TA9 PO; +TAMS0.4C97 PO
--- NOTE | 2017-04-15 11:18 | RAD ---
MRI Lumbar Spine without contrast History: Chronic low back pain, worsening right leg radiculopathy Technique: Multiplanar, multi sequential noncontrast MR imaging was performed of the lumbar spine. Contrast: None Comparison: None Findings: There is some motion degradation. There is nonspecific heterogeneity of the marrow signal. There is multilevel moderate to severe degenerative disc disease other than [id number] degenerative disc disease L3-4. Conus terminates at T12-L1. AP alignment is overall adequate. There is mild anterior wedge deformity of the L1 vertebral body without associated marrow edema. There is mild endplate edema greatest at L5-S1 and to lesser degree at more superior levels likely reactive/degenerative in etiology. L1-L2: There is negligible disc osteophyte complex. There is mild buckling of the ligamentum flavum and facet hypertrophic change. There is very mild narrowing of the far lateral recesses greater on the left. There is mild to moderate posterior narrowing of the right neural foramen by facet, left neural foramen overall adequate. L2-L3: There is disc osteophyte complex, superimposed shallow central protrusion.There is mild facet hypertrophic change and buckling of the ligamentum flavum. There is mild spinal stenosis with lateral recess stenosis bilaterally. Neural foramina are adequate. L3-L4: There is moderate facet hypertrophic change and mild buckling of the ligamentum flavum. There is disc osteophyte complex and minimal bulge. There is overall mild to moderate left and mild right lateral recess stenosis, mild narrowing of the central canal. Right neural foramen is adequate, mild to moderate narrowing of the left neural foramen. L4-L5: There is moderate to severe buckling of the ligamentum flavum and moderate facet hypertrophic change. There is minimal disc osteophyte complex. There is moderate to severe spinal stenosis, some preserved central subarachnoid space. There is lateral recess stenosis bilaterally with contact of the descending L5 nerve roots. There is [id number] narrowing of the left neural foramen by disc osteophyte complex and facet. There is moderate narrowing greater from posteriorly of the right neural foramen by facet with contact exiting right L4 nerve root. L5-S1: There is a shallow posterior protrusion without significant impingement of the descending S1 nerve roots, spinal canal overall adequate. Left neural foramen is adequate, moderate narrowing of the right neural foramen. Disc osteophyte complex is near the undersurface of the exiting right L5 nerve root in the distal right neural foramen and right extraforaminal region. Impression: 1. There is moderate to severe spinal stenosis L4-5, lateral recess stenosis bilaterally with contact descending L5 nerve roots. There is other lesser degree of lateral recess stenosis as stated greatest on the left at L3-4. 2. There is multilevel mild/moderate neural foramina compromise as described. 3. There is multilevel moderate to severe degenerative disc disease other than [id number] degenerative disc disease at L3-4. There is multilevel spondylosis. Electronically signed by: Bean Chen MD (04/15/2017 11:15 AM) [id number]
== END | disposition home or self-care (01) ==
LOC: MRI 10:15
PROVIDERS: ATTEND Physician Assistant Medical
DX: M51.16 Intervertebral disc disorders with radiculopathy, lumbar region (principal); M48.06 Spinal stenosis, lumbar region
CPT/HCPCS: 72148

== ENCOUNTER → 2017-05-25 | Outpatient (CLI) | payer BC, MEDICARE ==
[~2017-05-25] MED LIST changes: -DOCU-109 PO; -HYDR-2762 PO
[2017-05-25 15:57] LABS: BASO # 0.1 x10^3/uL (0.0-0.2); BASO % 1 % (0-3); EOS % 5 % (0-3); HEMATOCRIT 43.9 % (39.0-53.0); HEMOGLOBIN 14.7 g/dL (13.0-17.5); LYMPH % 31 % (24-48); MEAN CORPUSCULAR HEMOGLOBIN 31 pg (25-35); MEAN CORPUSCULAR HGB CONC 34 g/dL (31-37); MEAN CORPUSCULAR VOLUME 92 fL (79-100); MONO % 8 % (0-9); NEUT % 55 % (31-73); PLATELET COUNT 393 x10^3/uL (140-400); RED BLOOD COUNT 4.76 x10^6/uL (4.30-5.70); RED CELL DISTRIBUTION WIDTH 13.2 % (11.5-14.5); WHITE BLOOD COUNT 6.4 x10^3/uL (4.0-11.0)
[2017-05-25 16:09] LABS: PROTHROMBIN TIME PATIENT 12.8 SEC (11.7-14.0)
[2017-05-25 16:11] LABS: ALBUMIN 3.8 g/dL (3.4-5.0); ALBUMIN/GLOBULIN RATIO 1.2 (1.0-1.7); CALCIUM 8.8 mg/dL (8.5-10.1); CREATININE 0.9 mg/dL (0.7-1.3); GFR 82.5; TOTAL BILIRUBIN 0.4 mg/dL (0.2-1.0)
== END | disposition home or self-care (01) ==
LOC: SURGPAT 13:46
PROVIDERS: ATTEND Neurological Surgery
DX: M54.16 Radiculopathy, lumbar region (principal); R79.1 Abnormal coagulation profile
CPT/HCPCS: 36415; 80053; 85025; 85610; 85730; 87641

== ENCOUNTER 2017-06-01 07:19 | Day surgery (SDC) | payer BC, MEDICARE ==
--- NOTE | 2017-05-29 12:07 | HP ---
HISTORY OF PRESENT ILLNESS: The patient is a pleasant 72-year-old who is having difficulty with low back pain and pain which radiates down his right leg. The pain tends to radiate through his right thigh and leg. He notes pain in the right inguinal region as well as the right buttock. There is pain in the right ankle and foot. He initially injured his back in 1962 and said he has had multiple episodes since that time. Currently, he rates his pain as 2/10. He says it can become an 8/10 at its worse. Walking increases his pain. Chiropractic treatment seems to help him. He did take pain medications that he said were not helpful. Recently, he had cardiac stent placed. He says his PSA is elevated and next month he is able to come off of anticoagulation to have a prostate biopsy. PAST MEDICAL HISTORY: Arthritis, chest pain, hypertension, basal cell carcinoma, cardiac stent. PAST SURGICAL HISTORY: Tonsillectomy, hernia repair. FAMILY HISTORY: Cancer, heart disease. SOCIAL HISTORY: . Retired. Quit smoking more than 10 years ago. Drinks alcohol one to two times per year. ALLERGIES: No known drug allergies. CURRENT MEDICATIONS: Include fish oil, coconut oil, Plavix, lisinopril, aspirin, tamsulosin, Effient. REVIEW OF SYSTEMS: A 12-point review of systems was obtained and is noncontributory except for that mentioned above. PHYSICAL EXAMINATION: NEUROSURGERY EXAMINATION: GENERAL APPEARANCE: Alert, pleasant, no acute distress. HEAD: Normocephalic and atraumatic. SKIN: Warm and dry. MUSCULOSKELETAL: Lumbar paraspinal muscle bulk was normal, restricted range of motion of lumbar spine, [id number]-ccbhypty tenderness of lower lumbar spine with palpation, normal range of motion of the lower extremities bilaterally. EXTREMITIES: No clubbing, cyanosis, or edema. NEUROLOGIC: Alert and oriented x 3, normal recent and remote memory, strength 5/5 in bilateral lower extremities, sensory was intact to light touch in bilateral lower extremities with a slight decrease in sensation of the right dorsal foot, reflexes were trace and symmetric in the lower extremities bilaterally, negative straight leg raising bilaterally, slightly forward stooped gait. IMAGING: I reviewed a lumbar MRI scan. On that study, there was a severe lumbar spinal stenosis at L4-L5. ASSESSMENT/ PLAN: He has severe lumbar spinal stenosis at L4-L5 and right radicular symptoms. The problem has been present for years, but it has been much worse over the last several months. He has been receiving chiropractic treatment, which has been helpful, but of limited benefit. He will require a right direct laminectomy at L4-L5 with decompression of dura and nerve roots. I did discuss surgery with him. I spoke with him about the risks and expected postoperative course. He would like to go ahead. We will make the arrangements. ISAI MARTINI MD DR: NORMA/rosi JOB#: [id number] / [id number] PREMA
[~2017-06-01] VITALS: Ht 182.9 cm; Wt 90.7 kg
[~2017-06-01 07:19] MED LIST changes: +BACITRACIN 50,000 UNIT in IV NORMAL SALINE 1000ML BAG 1,000 ML IRR ONE; +BUPIVAC MPF-EPI 0.5%-1:200000 10 ML VIAL. ONE; +GELATIN SPONGE SIZE 100. ONE; +HYDROmorphone 2 MG/ML VIAL IV PRN; +IV RINGERS,LACTATED 1000ML 1,000 ML IV SCH; +KETOROLAC 60 MG/2 ML INJ FOR OR. ONE; +LIDOCAINE 1% PF 2 ML VIAL. ID PRN; +MORPHINE SULFATE 2 MG/ML DISP.SYRIN. IV PRN; +ONDANSETRON PF 4 MG/2 ML VIAL. IV PRN; +PROCHLORPERAZINE 10 MG/2 ML VIAL. IV PRN; +THROMBIN TOPICAL 20,000 UNIT SPRAY.SYRN KIT TP ONE; +fentaNYL PF VIAL 100 MCG/2 ML VIAL IV PRN
[2017-06-01] MEDS ORDERED: PROPOFOL 50 ML IV ONE ×2 (07:49→10:05)
[2017-06-01] MEDS ORDERED: REMIFENTANIL 2 MG VIAL. IV ONE (07:49)
[2017-06-01] MEDS ORDERED: ONDANSETRON PF 4 MG/2 ML VIAL. ONE (07:49)
[2017-06-01] MEDS ORDERED: PHENYLEPHRINE 10 MG/ML VIAL. ONE (07:49)
[2017-06-01] MEDS ORDERED: DEXAMETHASONE SOD PHOS 20 MG/5 ML VIAL. ONE (07:49)
[2017-06-01] MEDS ORDERED: PROPOFOL 20 ML IV ONE (07:49)
[2017-06-01] MEDS ORDERED: LIDOCAINE 2% PF Vial for OR 5 ML VIAL. ONE (07:49)
[2017-06-01] MEDS ORDERED: MINERAL OIL/PETROLATUM,WHITE OPHTH OINT 3.5GM TUBE. ONE (07:50)
[2017-06-01] MEDS ORDERED: 0.9 % SODIUM CHLORIDE 50 ML VIAL. IJ ONE (07:50)
[2017-06-01] MEDS ORDERED: DESFLURANE > 120 MINUTES IH ONE (07:51)
[2017-06-01] MEDS ORDERED: ROCURONIUM 100 MG/10 ML VIAL. ONE (08:02)
[2017-06-01] MEDS ORDERED: ePHEDrine PF IN SALINE 50 MG/5 ML DISP.SYRIN IV ONE (08:56)
[2017-06-01] MEDS ORDERED: GLYCOPYRROLATE 1 MG/5 ML VIAL. ONE (09:22)
--- NOTE | 2017-06-01 11:31 | DISCH ---
DISCHARGE INSTRUCTIONS Condition on Discharge Condition on Discharge: Stable Activity After Discharge Activity Instructions for Disc: Activity as tolerated, Avoid exertion Other activity instructions: no driving for a week Bathing Instructions: Shower-keep dressing dry Lifting Instructions after Dis: No heavy lifting, No pulling or pushing, Do not lift >10 pounds Diet after Discharge Additional Diet Restrictions: resume home diet Wound Incision Care Wound/Incision Care: Ice to area for comfort Other wound/incision instructi: may remove dressing in 48 hrs if dry then may shower, no soaking Contacting the after DC Call your doctor for: Concerns you may have Follow-Up Follow up with: Dr. Martini's nurse in 2 weeks [phone] ISAI MARTINI MD Jun 01, 2017 11:31
[2017-06-01] MEDS ORDERED: HYDR-2762 PO (11:35)
[2017-06-01] MEDS ORDERED: DOCU-109 PO (11:35)
[2017-06-01] MEDS ORDERED: HYDROcodone/APAP 7.5/325MG 1 TAB TABLET PO ONE (12:00)
[2017-06-01 13:15] VITALS: BP 101/67
--- NOTE | 2017-06-01 18:17 | OP ---
DATE OF SURGERY: 06/01/2017 PREOPERATIVE DIAGNOSES: Lumbar spinal stenosis L4-L5 with severe right lumbar radiculopathy. POSTOPERATIVE DIAGNOSES: Lumbar spinal stenosis L4-L5 with severe right lumbar radiculopathy. OPERATION PERFORMED: Lumbar laminectomy, right direct; decompression of dura and nerve root. The operation was done with EMG monitoring, fluoroscopy, microscopic dissection. SURGEON: Perez Martini M.D. ASIAN STUDIES PROFESSOR: Micki Rothman RN [employer] COMMANDING OFFICER assisted with the surgery. She assisted with the exposure, the laminectomy as well as the closure. OPERATIVE INDICATIONS: The patient is a pleasant 72-year-old man who developed severe intractable back and right leg pain, which failed to improve with conservative measures. On imaging studies, he had severe lumbar spinal stenosis at L4-L5 with the right side worse than the left and I recommended a right direct laminectomy. He understood the surgery and the risks involved, and he wished to go ahead. DESCRIPTION OF PROCEDURE: Following general endotracheal anesthesia, the patient was positioned prone on the Ronny table. His lumbar region was prepped and draped in standard fashion. GOLDY hose and AV impulse boots were applied for DVT prophylaxis. A microscope was draped. Fluoroscopy was draped and brought into the field. Monitoring was established. Ancef 2 grams was given less than 1 hour prior to initiation of the surgery. Using fluoroscopic guidance, an incision was made directly over the L4-L5 interspace. I dissected down through the skin and subcutaneous tissue and reflected the paraspinal muscles, placed a [place] micro disc retractor, brought in the microscope and the remainder of the surgery done with the microscope using microscopic technique. Using the high speed air drill, I burred down a generous hemilaminotomy. I then tilted the table away, drilled across the midline creating a laminectomy. I then went back and began to free up the very thickened ligamentum flavum, which was severely compressing the dura and the exiting L5 root. I did use a 2 mm micro Kerrison's as well as the high speed air drill to trim thickened bone and calcified ligament and I was able to free up and peel back and remove the ligamentum flavum over this region and fully decompressed the area. I did palpate the disc, it was not bulging significantly, very firm, no discectomy was warranted. I did coagulate a few epidural veins. I did create a partial foraminotomy. As I worked, the region became very well decompressed. The bone was quite vascular and I did use bone wax to prevent any bone bleeding of significance. Following the decompression, I irrigated copiously with antibiotic solution. I felt that I had an excellent decompression. I removed the retractor, obtained hemostasis in the muscle and irrigated further. Then, I closed the wound in layers with absorbable suture and skin was closed with a 4-0 subcuticular stitch. The operation went very well and the patient was awakened uneventfully, taken to recovery room in excellent condition with normal strength in his lower extremities. I was quite pleased with the surgery. PEREZ MARTINI MD DR: NORMA/rosi JOB#: [id number] / [id number] PREMA
--- NOTE | 2017-06-02 14:49 | PATHOLOGY ---
PATHOLOGY REPORT * * * * * * * * FINAL DIAGNOSIS: Segments of fibrocartilaginous, adipose, and skeletal muscle tissue and bone, lumbar decompression: - Degenerative changes of fibrocartilaginous tissue. COMMENT: There is no evidence of an acute inflammatory process or malignancy. (JPM:rlm; 06/02/2017) REPORT ELECTRONICALLY SIGNED BY: James Strong M.D. DATE/TIME: 06/02/2017 14:48 * * * * * * * * GROSS PATHOLOGY: Received in formalin labeled "Migel Jhaveri, lumbar decompression," are multiple segments of jackson rubbery and gritty tissue measuring 3.6 x 3.2 x 1.2 cm in aggregate dimensions, containing small fragments of bone. The tissue is submitted representatively in cassette A1. (TSD; 06/01/2017) INITIAL CPT CODE(S): A; 25831, 48731 Professional services [place] [address] Technical services performed by [facility] at [address] [place] [address]. SPECIMEN(S) RECEIVED: A.Lumbar decompression CLINICAL HISTORY: Lumbar stenosis, radiculopathy PATIENT: MIGEL JHAVERI /AGE: 9 1945 (Age: 72) PATIENT #: [id number] ALT CASE #: SPECIMEN COLLECTION DATE: 06/01/2017 SPECIMEN RECEIVED DATE: 06/01/2017 [facility] - [address] [place] [address] - PHONE: [phone] * * * END OF REPORT * * *
== END 2017-06-01 13:33 | disposition home or self-care (01) ==
LOC: SURG 07:19
PROVIDERS: ATTEND Neurological Surgery
DX: M48.061 Spinal stenosis, lumbar region without neurogenic claudication (principal); M54.16 Radiculopathy, lumbar region; E78.00 Pure hypercholesterolemia, unspecified; I10 Essential (primary) hypertension; M19.91 Primary osteoarthritis, unspecified site; Z86.69 Personal history of other diseases of the nervous system and sense organs; Z87.39 Personal history of other diseases of the musculoskeletal system and connective tissue
CPT/HCPCS: 63047; 76000; 97161; J0690; J1100; J1885; J2405; J2704; J3490; J7030; J7120; 88304; J2001

== ENCOUNTER 2017-09-17 08:35 | Inpatient (IN) | payer MEDICARE, BC ==
[2017-09-17] MEDS ORDERED: 0.9 % SODIUM CHLORIDE 10 ML DISP.SYRIN. IV (09:00)
[2017-09-17] MEDS: ONDANSETRON PF 4 MG/2 ML VIAL. IV (09:05)
[2017-09-17] MEDS: IV NORMAL SALINE 1000ML BAG 1,000 ML IV ×5 (09:05→19:59)
[2017-09-17 09:09] LABS: BASO % 0 % (0-3); EOS % 0 % (0-3); HEMOGLOBIN 15.7 g/dL (13.0-17.5); LYMPH # 1.2 x10^3/uL (1.0-4.8); LYMPH % 10 % (24-48); MEAN CORPUSCULAR HEMOGLOBIN 30 pg (25-35); MEAN CORPUSCULAR HGB CONC 33 g/dL (31-37); MEAN CORPUSCULAR VOLUME 91 fL (79-100); MONO # 0.5 x10^3/uL (0.0-1.1); MONO % 4 % (0-9); NEUT # 10.7 x10^3uL (1.8-7.7); NEUT % 86 % (31-73); PLATELET COUNT 583 x10^3/uL (140-400); RED BLOOD COUNT 5.17 x10^6/uL (4.30-5.70); RED CELL DISTRIBUTION WIDTH 13.4 % (11.5-14.5); WHITE BLOOD COUNT 12.6 x10^3/uL (4.0-11.0)
[2017-09-17] MEDS: MORPHINE SULFATE 4 MG/ML DISP.SYRIN. IV/SQ (09:09)
[2017-09-17] MEDS: ASPIRIN CHEWABLE 81 MG TABLET. PO (09:11)
[2017-09-17 09:15] LABS: ADD MAN DIFF? YES
[2017-09-17] MEDS ORDERED: CONTRAST GIVEN MC (09:15)
[2017-09-17 09:33] LABS: TROPONINI < 0.017 ng/mL (0.000-0.055)
[2017-09-17 09:34] LABS: ANION GAP 11 (6-14); BLOOD UREA NITROGEN 17 mg/dL (8-26); CARBON DIOXIDE 28 mmol/L (21-32); CHLORIDE 101 mmol/L (98-107); GLUCOSE 137 mg/dL (70-99); POTASSIUM 4.3 mmol/L (3.5-5.1); SODIUM 140 mmol/L (136-145)
[2017-09-17 09:38] LABS: ALBUMIN 4.4 g/dL (3.4-5.0); ALK PHOS 83 U/L (46-116); ALT (SGPT) 25 U/L (16-63); AST (SGOT) 16 U/L (15-37); DIRECT BILIRUBIN 0.1 mg/dL (0.0-0.2); LIPASE 129 U/L (73-393); MAGNESIUM 1.9 mg/dL (1.8-2.4); TOTAL BILIRUBIN 0.7 mg/dL (0.2-1.0); TOTAL PROTEIN 7.7 g/dL (6.4-8.2)
[2017-09-17 09:45] LABS: THYROID STIM HORMONE (TSH) 0.841 uIU/mL (0.358-3.74)
[2017-09-17] MEDS: IOHEXOL 300 MG/ML 100ML VIAL. IV (09:47)
[2017-09-17 09:51] LABS: NT-PRO BNP 106 pg/mL (0-124)
[2017-09-17 09:51] LABS: CKMB INDEX 2.3 % (0-4); CKMB MASS 2.3 ng/mL (0.0-3.6); CREATINE KINASE 99 U/L (39-308)
[2017-09-17 10:36] LABS: % BANDS 5 % (0-9); % BASOS 1 % (0-3); % LYMPHS 11 % (24-48); % MONOS 1 % (0-10); % SEGS 82 % (35-66); PLT ESTIMATE INCREASED (ADEQUATE)
[2017-09-17] MEDS ORDERED: ONDANSETRON PF 4 MG/2 ML VIAL. IV ×2 (11:15→13:30)
[2017-09-17] MEDS ORDERED: MORPHINE SULFATE 2 MG/ML DISP.SYRIN. IV (13:30)
[2017-09-17] MEDS ORDERED: hydrALAZINE 20 MG/ML VIAL. IVP ×2 (13:30→14:00)
[2017-09-17] MEDS: FAMOTIDINE 20 MG/2 ML VIAL IVP ×2 (14:04→19:55)
[2017-09-17] MEDS: MORPHINE SULFATE 4 MG/ML DISP.SYRIN. IV (14:11)
[2017-09-17 14:16] LABS: CHOLESTEROL 186 mg/dL (0-200); HDLC 52 mg/dL (40-60); LDLC 119 mg/dL (0-100); NON-HDL CHOLESTEROL 134 mg/dL (0-129); TRIGLYCERIDES 77 mg/dL (0-150); VLDLC 15 mg/dL (0-40)
[2017-09-17 14:18] LABS: CHOLESTEROL/HDL RATIO 3.6
[2017-09-17 18:11] LABS: TROPONINI 0.017 ng/mL (0.000-0.055)
[2017-09-18 00:19] LABS: TROPONINI < 0.017 ng/mL (0.000-0.055)
[2017-09-18 05:23] LABS: ADD MAN DIFF? NO
[2017-09-18 05:41] LABS: BASO % 1 % (0-3); EOS # 0.2 x10^3/uL (0.0-0.7); EOS % 2 % (0-3); HEMATOCRIT 41.9 % (39.0-53.0); HEMOGLOBIN 13.7 g/dL (13.0-17.5); LYMPH # 2.5 x10^3/uL (1.0-4.8); LYMPH % 28 % (24-48); MEAN CORPUSCULAR HEMOGLOBIN 30 pg (25-35); MEAN CORPUSCULAR HGB CONC 33 g/dL (31-37); MEAN CORPUSCULAR VOLUME 93 fL (79-100); MONO # 0.8 x10^3/uL (0.0-1.1); MONO % 10 % (0-9); NEUT # 5.3 x10^3uL (1.8-7.7); NEUT % 60 % (31-73); PLATELET COUNT 465 x10^3/uL (140-400); RED BLOOD COUNT 4.51 x10^6/uL (4.30-5.70); RED CELL DISTRIBUTION WIDTH 13.6 % (11.5-14.5); WHITE BLOOD COUNT 8.9 x10^3/uL (4.0-11.0)
[2017-09-18 06:04] LABS: ANION GAP 7 (6-14); BLOOD UREA NITROGEN 14 mg/dL (8-26); CALCIUM 8.6 mg/dL (8.5-10.1); CARBON DIOXIDE 29 mmol/L (21-32); CHLORIDE 106 mmol/L (98-107); CREATININE 0.8 mg/dL (0.7-1.3); GFR 94.5; GLUCOSE 68 mg/dL (70-99); POTASSIUM 4.1 mmol/L (3.5-5.1); SODIUM 142 mmol/L (136-145)
[2017-09-18] MEDS ORDERED: CONTRAST GIVEN MC (08:15)
[2017-09-18] MEDS: IOHEXOL 300 MG/ML 100ML VIAL. PO (08:33)
[2017-09-18] MEDS: IV NORMAL SALINE 1000ML BAG 1,000 ML IV (10:00)
[2017-09-18] MEDS: FAMOTIDINE 20 MG/2 ML VIAL IVP (10:06)
== END 2017-09-18 12:25 | disposition home or self-care (01) | DRG 313 ==
LOC: ER 08:35 → 4 NORTH 11:06
DX: R07.89 Other chest pain (principal); I25.10 Atherosclerotic heart disease of native coronary artery without angina pectoris; K56.600 Partial intestinal obstruction, unspecified as to cause; C61 Malignant neoplasm of prostate; E78.5 Hyperlipidemia, unspecified; K57.30 Diverticulosis of large intestine without perforation or abscess without bleeding; M47.816 Spondylosis without myelopathy or radiculopathy, lumbar region; G89.29 Other chronic pain; M19.90 Unspecified osteoarthritis, unspecified site; M54.5 Low back pain; Z79.82 Long term (current) use of aspirin; Z79.899 Other long term (current) drug therapy; Z82.49 Family history of ischemic heart disease and other diseases of the circulatory system; Z85.46 Personal history of malignant neoplasm of prostate; Z86.010 Personal history of colon polyps; Z79.02 Long term (current) use of antithrombotics/antiplatelets; Z90.79 Acquired absence of other genital organ(s); Z95.5 Presence of coronary angioplasty implant and graft
CPT/HCPCS: 36415; 71275; 74177; 74250; 80048; 80061; 80076; 82553; 83690; 83735; 83880; 84443; 84484; 85007; 85025; 93005; 93306; 96361; 96372; 96374; 99285; 99285-25; J2060; J2270; J2405; J7030; Q9967; S0028

== ENCOUNTER → 2017-11-04 | Outpatient (CLI) | payer BC, MEDICARE | END | disposition home or self-care (01) | LOC: ECHO 12:45 | DX: I25.10 Atherosclerotic heart disease of native coronary artery without angina pectoris (principal) | CPT/HCPCS: 93017; 93350 ==

== ENCOUNTER → 2017-11-18 | Day surgery (SDC) | payer BC, MEDICARE ==
[~2017-11-18] MED LIST changes: -ASPI-612 PO; -ATOR40TA59 PO; -BACITRACIN 50,000 UNIT in IV NORMAL SALINE 1000ML BAG 1,000 ML IRR ONE; -BUPIVAC MPF-EPI 0.5%-1:200000 10 ML VIAL. ONE; -CLOP75TA PO; -COCO1000 PO; -COCO120O MC; -GELATIN SPONGE SIZE 100. ONE; -GLUC1TAB44 PO; +HYDROmorphone 2 MG/ML VIAL IV; -HYDROmorphone 2 MG/ML VIAL IV PRN; -IV RINGERS,LACTATED 1000ML 1,000 ML IV SCH; -KETOROLAC 60 MG/2 ML INJ FOR OR. ONE; +LIDOCAINE 1% PF 2 ML VIAL. ID; -LIDOCAINE 1% PF 2 ML VIAL. ID PRN; -LISI10TA2 PO; -LUTE20CA4 PO; -MORPHINE SULFATE 2 MG/ML DISP.SYRIN. IV PRN; +MORPHINE SULFATE 4 MG/ML DISP.SYRIN. IV; -OMEG1CAP6 PO; -OMEP40CA5 PO; +ONDANSETRON PF 4 MG/2 ML VIAL. IV; -ONDANSETRON PF 4 MG/2 ML VIAL. IV PRN; -PRAS10TA9 PO; +PROCHLORPERAZINE 10 MG/2 ML VIAL. IV; -PROCHLORPERAZINE 10 MG/2 ML VIAL. IV PRN; +PROPOFOL 20 ML IV; -TAMS0.4C97 PO; -THROMBIN TOPICAL 20,000 UNIT SPRAY.SYRN KIT TP ONE; -TUMERIC CURCUMIN PO; +fentaNYL PF VIAL 100 MCG/2 ML VIAL IV; -fentaNYL PF VIAL 100 MCG/2 ML VIAL IV PRN
[2017-11-18] MEDS: IV RINGERS,LACTATED 1000ML 1,000 ML IV (06:45)
== END | disposition home or self-care (01) ==
LOC: ENDOS 06:18
DX: K20.9 Esophagitis, unspecified (principal); K29.50 Unspecified chronic gastritis without bleeding; M19.90 Unspecified osteoarthritis, unspecified site; Z85.46 Personal history of malignant neoplasm of prostate; Z85.828 Personal history of other malignant neoplasm of skin; Z95.5 Presence of coronary angioplasty implant and graft; Z80.3 Family history of malignant neoplasm of breast; Z82.49 Family history of ischemic heart disease and other diseases of the circulatory system; Z80.0 Family history of malignant neoplasm of digestive organs; Z87.891 Personal history of nicotine dependence; Z79.82 Long term (current) use of aspirin; Z79.899 Other long term (current) drug therapy; Z98.890 Other specified postprocedural states; Z90.79 Acquired absence of other genital organ(s)
CPT/HCPCS: 43235; J2704

== ENCOUNTER → 2020-10-09 | Outpatient (CLI) | payer BC ==
[2017-11-18 08:01] VITALS: BP 101/56
[~2020-10-09] MED LIST changes: +ASPI-886 PO; +ATOR20TA58 PO; +ATOR40TA59 PO; +CLOP75TA PO; +COCO1000 PO; +COCO120O MC; +CURC10PO PO; +DOCU-109 PO; +GLUC1TAB44 PO; +HYDR-2765 PO; -HYDROmorphone 2 MG/ML VIAL IV; -LIDOCAINE 1% PF 2 ML VIAL. ID; +LISI10TA16 PO; +LUTE20CA4 PO; -MORPHINE SULFATE 4 MG/ML DISP.SYRIN. IV; +OMEG1CAP6 PO; +OMEP40CA45 PO; -ONDANSETRON PF 4 MG/2 ML VIAL. IV; +PRAS10TA9 PO; -PROCHLORPERAZINE 10 MG/2 ML VIAL. IV; -PROPOFOL 20 ML IV; +TAMS0.4C97 PO; +TUMERIC CURCUMIN PO; -fentaNYL PF VIAL 100 MCG/2 ML VIAL IV
== END ==
LOC: LAB 13:27
PROVIDERS: ATTEND Surgery
DX: Z01.812 Encounter for preprocedural laboratory examination (principal); K40.91 Unilateral inguinal hernia, without obstruction or gangrene, recurrent; Z20.822 Contact with and (suspected) exposure to COVID-19
CPT/HCPCS: U0003

== ENCOUNTER 2020-10-12 07:49 | Day surgery (SDC) | payer BC ==
[~2020-10-12] VITALS: Ht 182.9 cm; Wt 86.5 kg
[~2020-10-12 07:49] MED LIST changes: +ACETAMINOPHEN 500 MG TABLET PO PRN; +HYDROmorphone 2 MG/ML VIAL IVP PRN; +IV RINGERS,LACTATED 1000ML 1,000 ML IV SCH; +MORPHINE SULFATE 2 MG/ML VIAL. IVP PRN; +PROCHLORPERAZINE 10 MG/2 ML VIAL. IVP PRN; +fentaNYL PF VIAL 100 MCG/2 ML VIAL IVP PRN
[2020-10-12] MEDS ORDERED: ROCURONIUM 50 MG/5 ML VIAL. ONE (08:02)
[2020-10-12] MEDS ORDERED: fentaNYL PF VIAL 100 MCG/2 ML VIAL ONE (08:02)
[2020-10-12] MEDS ORDERED: SEVOFLURANE 61 TO 120 MINUTES. IH ONE (08:02)
[2020-10-12] MEDS ORDERED: PROPOFOL 10 MG/ML (20ML) VIAL. IV ONE (08:03)
[2020-10-12] MEDS ORDERED: ONDANSETRON PF 4 MG/2 ML VIAL. ONE (08:03)
[2020-10-12] MEDS ORDERED: LIDOCAINE 2% PF 5 ML VIAL. ONE (08:03)
[2020-10-12] MEDS ORDERED: DEXAMETHASONE SOD PHOS 4 MG/ML VIAL ONE (08:03)
[2020-10-12] MEDS ORDERED: NEOSTIGMINE METHYLSULFATE 5 MG/5 ML SYRINGE. ONE (08:04)
[2020-10-12] MEDS ORDERED: GLYCOPYRROLATE 1 MG/5 ML VIAL. ONE (08:04)
[2020-10-12] MEDS ORDERED: NALOXONE 0.4 MG/ML VIAL. ONE (08:47)
[2020-10-12] MEDS ORDERED: BUPIVACAINE-EPI 0.25% 30 ML VIAL KIT. ONE (09:02)
[2020-10-12] MEDS ORDERED: MINERAL OIL for SURGERY 10 ML VIAL. MC ONE (09:03)
[2020-10-12] MEDS ORDERED: KETOROLAC 30 MG/ML VIAL. ONE (09:35)
[2020-10-12] MEDS ORDERED: ePHEDrine PF IN SALINE 50 MG/10 ML SYRINGE. IV ONE (09:37)
--- NOTE | 2020-10-12 10:26 | PDOC4 ---
Operative Note Operative Note Date: October 122020 at 1023 Preoperative diagnosis: Recurrent left inguinal hernia Postoperative diagnosis: Same Procedure: Robotic assisted laparoscopic left inguinal hernia repair with mesh Surgeon: Maikel Specimen: None Dictation: Patient is a 75-year-old gentleman who was previously had a laparoscopic bilateral inguinal hernia repair. He complains of a painful bulge on his left side similar to what the hernia he had previously. Procedure of robotic assisted laparoscopic left inguinal hernia repair was explained to the patient detail risk benefits were also discussed including bleeding infection injury to intra-abdominal contents possible necessitating further open operations alternatives to this procedure also discussed with the patient who seemed to understand and gave both verbal and written consent to have the procedure performed. Patient was taken to the operating room placed in supine position general anesthesia was initiated once patient was sleeping intubated is placed in low lithotomy positioning and his abdomen was prepped and draped in usual sterile fashion using ChloraPrep. An area just below the umbilicus was injected with quarter percent Marcaine with epinephrine incision was made 11 blade scalpel and a varies needle was placed within the abdomen creating pneumoperitoneum once this was complete a 8 mm da Cr port was placed in the da Cr camera was placed within the abdomen which was inspected was noted the left inguinal hernia was present a 8 mm ventral port was placed in the right midabdomen and an 8 mm da Cr port in the left midabdomen under direct visualization the da Cr robot was brought and docked all port sites surgeon went to the robotic console using a grasper and Endo Sabrina scissors the peritoneum over the left groin was incised and a window propagated inferiorly reducing the hernia sac along with the peritoneum. A large Bard 3D max mesh was then placed over the inguinal area covering the hernia the peritoneum was then closed with a running 2 OV lock absorbable suture. The da Cr robot was undocked from all port sites the pneumoperitoneum reduced all ports were removed all port sites were closed with 4 subcuticular Monocryl Mastisol Steri-Strips and island dressings were applied. Patient was awakened and extubated in the operating room taken to recovery in stable condition all sponge instrument needle counts listed as correct estimated blood loss 5 mL YESIKA EDWARDS MD Oct 12, 2020 10:26
--- NOTE | 2020-10-12 10:29 | DISCH ---
DISCHARGE INSTRUCTIONS Condition on Discharge Condition on Discharge: Stable Activity After Discharge Activity Instructions for Disc: Avoid exertion Other activity instructions: No lifting more than 20 pounds for 2 weeks Diet after Discharge Diet after Discharge: Cardiac, GI Soft Additional Diet Restrictions: resume home diet Wound Incision Care Wound/Incision Care: No wound care needed Other wound/incision instructi: May shower in 24 hours Contacting the [facility] after DC Call your doctor for: If your condition worsens Follow-Up Follow up with: Dr. Edwards in 2 weeks Treatment/Equipment after DC Adaptive Equipment Issued: None YESIKA EDWARDS MD Oct 12, 2020 10:29
[2020-10-12] MEDS ORDERED: OXYC-325 PO (11:24)
[2020-10-12] MEDS ORDERED: oxyCODONE/APAP 5/325 1 TAB TABLET PO ONE ×2 (11:30)
[2020-10-12 11:32] VITALS: BP 120/64
== END 2020-10-12 11:57 | disposition home or self-care (01) ==
LOC: SURG 07:49
PROVIDERS: ATTEND Surgery
DX: K40.91 Unilateral inguinal hernia, without obstruction or gangrene, recurrent (principal); I25.10 Atherosclerotic heart disease of native coronary artery without angina pectoris; I10 Essential (primary) hypertension; E78.00 Pure hypercholesterolemia, unspecified; M19.90 Unspecified osteoarthritis, unspecified site; Z85.828 Personal history of other malignant neoplasm of skin; Z79.899 Other long term (current) drug therapy; Z98.890 Other specified postprocedural states; Z79.82 Long term (current) use of aspirin; Z87.891 Personal history of nicotine dependence; Z72.89 Other problems related to lifestyle; Z82.49 Family history of ischemic heart disease and other diseases of the circulatory system; Z80.0 Family history of malignant neoplasm of digestive organs
CPT/HCPCS: 49651; A4364; C1781; J0690; J1100; J1885; J2310; J2405; J2704; J2710; J3010; J3490; S2900